=== PATIENT | male | born 1945 | race African-American/Black ===

== ENCOUNTER 2017-05-03 19:40 | Inpatient (IN) | payer MEDICARE, MEDICAID ==
[~2017-05-03] VITALS: Ht 172.7 cm; Wt 58.5 kg
[~2017-05-03 19:40] MED LIST: ACETAMINOP650 MG/20. PO; AGGRENOX1 CAP PO; ATORVASTATIN CA10 MG PO; COLACE100 MG PO; KEPPRA500 MG PO; LABETALOL HCL200 MG PO; LATANOPROST2.5 ML BOTH EYES; MULTIVITAMINS1 EAC8 PO; MYLANTA LIQUID355 ML PO; NORVASC10 MG PO; NOVOLOG INSULIN; NOVOLOG100 UNIT/3 SUBQ; PRILOSEC40 MG PO; SENNA LAX8.6 MG PO; ZESTRIL20 MG PO
[2017-05-03 19:53] VITALS: BP 169/106
[2017-05-03 21:02] VITALS: BP 162/93
[2017-05-03] MEDS ORDERED: ADVANCED ANTAC355 ML ORAL ×4 (21:14→21:43)
[2017-05-03] MEDS ORDERED: MYLANTA30 M1 GT (21:14)
[2017-05-03] MEDS ORDERED: ACETAMINOPHEN325 M1 ORAL (21:16)
[2017-05-03] MEDS ORDERED: PEPCID40 MG PO (21:18)
[2017-05-03 21:19] LABS: EOSINOPHILS % (AUTO) 0.3 % (0.0-3.0); LYMPHOCYTES % (AUTO) 28.6 % (20.0-45.0); MEAN CORPUSCULAR HGB CONC 33.4 G/DL (32.0-36.0); MEAN CORPUSCULAR VOLUME 96 FL (80-99); MEAN PLATELET VOLUME 8.7 FL (6.5-10.1); MONOCYTES % (AUTO) 6.6 % (1.0-10.0); NEUTROPHILS % (AUTO) 62.6 % (45.0-75.0); PLATELET COUNT 210 K/UL (150-450); RED BLOOD COUNT 5.09 M/UL (4.70-6.10); RED CELL DISTRIBUTION WIDTH 10.6 % (11.6-14.8); WHITE BLOOD COUNT 7.1 K/UL (4.8-10.8)
[2017-05-03] MEDS ORDERED: ASPIRIN EC325 MG ORAL (21:20)
[2017-05-03 21:22] LABS: APPEARANCE,URINE CLOUDY; KETONES,URINE 3+ (NEGATIVE); LEUKOCYTE ESTERASE ,URINE 3+ (NEGATIVE); NITRITE,URINE POSITIVE (NEGATIVE); PH,URINE 6 (4.5-8.0); PROTEIN,URINE 2+ (NEGATIVE); UROBILINOGEN,URINE NORMAL MG/DL (0.0-1.0)
[2017-05-03] MEDS ORDERED: LABETALOL HCL200 MG ORAL ×2 (21:22→21:34)
[2017-05-03] MEDS ORDERED: LISINOPRIL40 MG ORAL (21:29)
[2017-05-03 21:34] LABS: ALANINE AMINOTRANSFERASE 8 U/L (3-41); ALBUMIN/GLOBULIN RATIO 1.2 (1.0-2.7); ANION GAP 20 (5-15); ASPARTATE AMINO TRANSFERASE 22 U/L (5-40); CALCIUM 9.4 mg/dL (8.6-10.2); CARBON DIOXIDE 22 mEQ/L (20-30); CHLORIDE 100 mEQ/L (98-107); GLOMERULAR FILTRATION RATE > 60 mL/min (>60); HEMOLYSIS 12; LIPASE 17 U/L (< 60); POTASSIUM 4.2 mEQ/L (3.4-4.9); SODIUM 142 mEQ/L (135-145); TOTAL PROTEIN 7.5 g/dL (6.6-8.7)
[2017-05-03 21:37] LABS: BACTERIA,URINE MANY /HPF; RBC,URINE 15-20 /HPF (0 - 0); WBC,URINE TNTC /HPF (0 - 0)
[2017-05-03] MEDS ORDERED: Cefepime HCl 1 GM in D5W 55 ML IVPB ONE (21:45)
[2017-05-03] MEDS ORDERED: Cefepime 1gm vial ONE (21:49)
--- NOTE | 2017-05-03 22:27 | Emergency Room Report ---
History of Present Illness General Chief Complaint: General Complaint Source: Patient, Medical Record, EMS Present Illness HPI Is a 71-year-old gentleman with multiple medical problem. [facility]. He presents with chief complaint of generalized weakness. Not eating or drinking for about a week now. Diffuse in his medication. Patient denies any pain. No nausea no vomiting. No fever or chills. When I asked her why he is not eating, he said he does not have any appetite. 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 Hx Seizures: Yes - Epilepsy Hx Dysphasia: Yes Review of Systems Constitutional: Reports: weakness Eye: Denies: blurred vision, eye pain ENT: Denies: ear pain, nose congestion, throat swelling Respiratory: Denies: cough, shortness of breath Cardiovascular: Denies: chest pain, palpitations Gastrointestinal: Denies: abdominal pain, diarrhea, nausea, vomiting Musculoskeletal: Denies: back pain, joint pain Skin: Denies: rash Neurological: Denies: headache, numbness Endocrine: Denies: increased thirst, increased urine Hematologic/Lymphatic: Denies: easy bruising All Other Systems: negative except mentioned in HPI Physical Exam Vital Signs Date Time Temp Pulse Resp B/P Pulse Ox O2 Delivery O2 Flow Rate FiO2 05/03/17 19:36 98.1 84 16 155/91 97 Room Air vitals with htn Sp02 EP Interpretation: reviewed, normal General Appearance: no apparent distress, alert, thin Head: normocephalic, atraumatic Eyes: bilateral eye EOMI, bilateral eye PERRL ENT: hearing grossly normal, normal pharynx Neck: full range of motion, supple, no meningismus Respiratory: chest non-tender, lungs clear, normal breath sounds Cardiovascular #1: regular rate, rhythm, no murmur Gastrointestinal: normal bowel sounds, non tender, no mass, no organomegaly, no bruit, non-distended Musculoskeletal: back normal, gait/station normal, normal range of motion Psychiatric: mood/affect normal Skin: warm/dry Medical Decision Making Diagnostic Impression: Primary Impression: Failure to thrive in adult Additional Impressions: Dehydration UTI (urinary tract infection) Qualified Codes: N30.00 - Acute cystitis without hematuria Proteinuria Qualified Codes: R80.9 - Proteinuria, unspecified ER Course Patient with weakness and dehydration. Most likely secondary to infectious cause. No evidence of TIA or CVA. No evidence of acute abdomen. We'll get to the hospital. Discussed with primary care who will admit Lab Results Impression labs unremarkable Rhythm Strip Diag. Results Rhythm Strip Time: 22:57 EP Interpretation: yes Rate: 70 Rhythm: NSR Chest X-Ray Diagnostic Results Chest X-Ray Ordered: Yes # of Views/Limited/Complete: 1 View EP Interpretation: Yes Interpretation: no consolidation, no effusion, no pneumothorax Indication: Shortness of Breath Impression: No acute disease Interpreting ER Provider: Johnnie Fuentes MD Last Vital Signs Date Time Temp Pulse Resp B/P Pulse Ox O2 Delivery O2 Flow Rate FiO2 05/03/17 19:53 98.1 85 18 169/106 100 05/03/17 19:36 Room Air Status: improved Disposition: ADMITTED INPATIENT Condition: Serious Referrals: Gonzalez Romeo MD (PCP) JOHNNIE FUENTES M.D. May 03, 2017 22:27
[2017-05-03 23:57] VITALS: BP 150/85
[2017-05-04] VITALS: BP 142/85
[2017-05-04] MEDS ORDERED: Mylanta II UD 30ml ORAL PRN (02:00)
[2017-05-04 04:00] VITALS: BP 149/90
[2017-05-04 06:10] LABS: BASOPHILS % (AUTO) 1.5 % (0.0-2.0); EOSINOPHILS % (AUTO) 0.8 % (0.0-3.0); MEAN CORPUSCULAR HEMOGLOBIN 32.8 PG (27.0-31.0); MEAN CORPUSCULAR HGB CONC 33.9 G/DL (32.0-36.0); MEAN CORPUSCULAR VOLUME 97 FL (80-99); MEAN PLATELET VOLUME 9.2 FL (6.5-10.1); MONOCYTES % (AUTO) 8.8 % (1.0-10.0); NEUTROPHILS % (AUTO) 64.8 % (45.0-75.0); PLATELET COUNT 241 K/UL (150-450); RED BLOOD COUNT 4.42 M/UL (4.70-6.10); RED CELL DISTRIBUTION WIDTH 10.2 % (11.6-14.8)
[2017-05-04] MEDS: NovoLOG Insulin Flexpen SUBQ SCH ×4 (06:30→21:00)
[2017-05-04 06:39] LABS: ALANINE AMINOTRANSFERASE 7 U/L (3-41); ALBUMIN/GLOBULIN RATIO 1.4 (1.0-2.7); ANION GAP 19 (5-15); ASPARTATE AMINO TRANSFERASE 19 U/L (5-40); CARBON DIOXIDE 24 mEQ/L (20-30); CHLORIDE 101 mEQ/L (98-107); CREATININE 0.8 mg/dL (0.7-1.2); GLOMERULAR FILTRATION RATE > 60 mL/min (>60); HEMOLYSIS 1; POTASSIUM 3.7 mEQ/L (3.4-4.9); SODIUM 144 mEQ/L (135-145); TOTAL PROTEIN 6.6 g/dL (6.6-8.7)
[2017-05-04 08:00] VITALS: BP 132/89
--- NOTE | 2017-05-04 08:05 | Infectious Diseases Prog Note ---
Assessment/Plan Problems: (1) UTI (urinary tract infection) Assessment & Plan: will start cefepime , and send urine and blood culture (2) Failure to thrive in adult Assessment & Plan: recommend dietitian consult, may need tube feeding (3) Dehydration Assessment & Plan: continue ivf , monitor lytes (4) Seizure disorder Assessment & Plan: continue seizure meds, consult neurology (5) Diabetes Assessment & Plan: recommend tight glycemic control to keep blood glucose between 80-120 Subjective Allergies: Coded Allergies: PENICILLINS (Verified Allergy, Unknown, 09/27/11) Objective Vital Signs Last 24 Hour Vital Signs Date Time Temp Pulse Resp B/P Pulse Ox O2 Delivery O2 Flow Rate FiO2 05/04/17 04:00 97.8 70 20 149/90 98 Room Air 05/04/17 00:00 97.6 70 19 142/85 100 Room Air 05/03/17 23:57 98.1 74 18 150/85 100 05/03/17 23:57 74 26 150/85 100 Room Air 05/03/17 23:33 162/93 05/03/17 21:02 97.5 73 18 162/93 100 05/03/17 19:53 98.1 85 18 169/106 100 05/03/17 19:36 98.1 84 16 155/91 97 Room Air Height (Feet): 5 Height (Inches): 8.00 Weight (Pounds): 129 Laboratory Tests Test 05/03/17 20:54 05/03/17 21:12 05/04/17 05:00 White Blood Count 7.1 K/UL (4.8-10.8) 7.0 K/UL (4.8-10.8) Red Blood Count 5.09 M/UL (4.70-6.10) 4.42 M/UL (4.70-6.10) L Hemoglobin 16.3 G/DL (14.2-18.0) 14.5 G/DL (14.2-18.0) Hematocrit 48.9 % (42.0-52.0) 42.8 % (42.0-52.0) Mean Corpuscular Volume 96 FL (80-99) 97 FL (80-99) Mean Corpuscular Hemoglobin 32.0 PG (27.0-31.0) H 32.8 PG (27.0-31.0) H Mean Corpuscular Hemoglobin Concent 33.4 G/DL (32.0-36.0) 33.9 G/DL (32.0-36.0) Red Cell Distribution Width 10.6 % (11.6-14.8) L 10.2 % (11.6-14.8) L Platelet Count 210 K/UL (150-450) 241 K/UL (150-450) Mean Platelet Volume 8.7 FL (6.5-10.1) 9.2 FL (6.5-10.1) Neutrophils (%) (Auto) 62.6 % (45.0-75.0) 64.8 % (45.0-75.0) Lymphocytes (%) (Auto) 28.6 % (20.0-45.0) 24.0 % (20.0-45.0) Monocytes (%) (Auto) 6.6 % (1.0-10.0) 8.8 % (1.0-10.0) Eosinophils (%) (Auto) 0.3 % (0.0-3.0) 0.8 % (0.0-3.0) Basophils (%) (Auto) 2.0 % (0.0-2.0) 1.5 % (0.0-2.0) Sodium Level 142 mEQ/L (135-145) 144 mEQ/L (135-145) Potassium Level 4.2 mEQ/L (3.4-4.9) 3.7 mEQ/L (3.4-4.9) Chloride Level 100 mEQ/L (98-107) 101 mEQ/L (98-107) Carbon Dioxide Level 22 mEQ/L (20-30) 24 mEQ/L (20-30) Anion Gap 20 (5-15) H 19 (5-15) H Blood Urea Nitrogen 22 mg/dL (7-23) 18 mg/dL (7-23) Creatinine 1.0 mg/dL (0.7-1.2) 0.8 mg/dL (0.7-1.2) Estimat Glomerular Filtration Rate > 60 mL/min (>60) > 60 mL/min (>60) Glucose Level 99 mg/dL (74-106) 93 mg/dL (74-106) Calcium Level 9.4 mg/dL (8.6-10.2) 9.0 mg/dL (8.6-10.2) Total Bilirubin 0.7 mg/dL (0.0-1.2) 0.9 mg/dL (0.0-1.2) Aspartate Amino Transf (AST/SGOT) 22 U/L (5-40) 19 U/L (5-40) Alanine Aminotransferase (ALT/SGPT) 8 U/L (3-41) 7 U/L (3-41) Alkaline Phosphatase 64 U/L (40-129) 61 U/L (40-129) Total Protein 7.5 g/dL (6.6-8.7) 6.6 g/dL (6.6-8.7) Albumin 4.2 g/dL (3.5-5.2) 3.9 g/dL (3.5-5.2) Globulin 3.3 g/dL 2.7 g/dL Albumin/Globulin Ratio 1.2 (1.0-2.7) 1.4 (1.0-2.7) Lipase 17 U/L (< 60) Urine Color Pale yellow Urine Appearance Cloudy Urine pH 6 (4.5-8.0) Urine Specific [place] 1.015 (1.005-1.035) Urine Protein 2+ (NEGATIVE) H Urine Glucose (UA) Negative (NEGATIVE) Urine Ketones 3+ (NEGATIVE) H Urine Occult Blood 1+ (NEGATIVE) H Urine Nitrite Positive (NEGATIVE) H Urine Bilirubin Negative (NEGATIVE) Urine Urobilinogen Normal MG/DL (0.0-1.0) Urine Leukocyte Esterase 3+ (NEGATIVE) H Urine RBC 15-20 /HPF (0 - 0) H Urine WBC Tntc /HPF (0 - 0) H Urine Squamous Epithelial Cells None /LPF (NONE/OCC) Urine Bacteria Many /HPF (NONE) H Current Medications Medications (Trade) Dose Ordered Sig/Verónica Route PRN Reason Start Time Stop Time Status Last Admin Dose Admin Acetaminophen (Tylenol) 650 mg Q4H PRN ORAL Mild Pain/Temp > 100.5 05/04/17 02:00 06/03/17 01:59 Al Hydroxide/Mg Hydroxide (Mylanta II) 10 ml Q6H PRN ORAL heart burn/gas 05/04/17 02:00 06/03/17 01:59 Amlodipine Besylate (Norvasc) 10 mg DAILY ORAL 05/04/17 09:00 06/03/17 08:59 Aspirin (Ecotrin) 325 mg DAILY ORAL 05/04/17 09:00 06/03/17 08:59 Atorvastatin Calcium (Lipitor) 10 mg QHS ORAL 05/04/17 21:00 06/03/17 20:59 Clonidine HCl (Catapres) 0.1 mg Q6H PRN ORAL For High Blood Pressure 05/04/17 01:45 06/03/17 01:44 Dextrose (Dextrose 50%) STAT PRN IV Hypoglycemia 05/04/17 02:00 06/03/17 01:59 Docusate Sodium (Colace) 100 mg BID ORAL 05/04/17 09:00 06/03/17 08:59 Famotidine (Pepcid I.v.) 40 mg DAILY IVP 05/04/17 09:00 06/03/17 08:59 Insulin Aspart (NovoLOG) BEFORE MEALS AND HS SUBQ 05/04/17 06:30 06/03/17 06:29 Labetalol HCl (Normodyne) 200 mg DAILY ORAL 05/04/17 09:00 06/03/17 08:59 Latanoprost (Xalatan) 1 drop QHS BOTH EYES 05/04/17 21:00 06/03/17 20:59 Levetiracetam (Keppra) 500 mg Q12HR ORAL 05/04/17 09:00 06/03/17 08:59 Lisinopril (Prinivil) 40 mg DAILY ORAL 05/04/17 09:00 06/03/17 08:59 Multivitamins Therapeutic (Therapeutic Multivitamin) 1 ea DAILY ORAL 05/04/17 09:00 06/03/17 08:59 Alan Vickers M.D. May 04, 2017 08:05
[2017-05-04] MEDS: Labetalol 200mg tab ORAL SCH (09:00)
[2017-05-04] MEDS: Docusate 100mg cap ORAL SCH ×3 (09:00→18:00)
[2017-05-04] MEDS: Multivitamin w/Minerals tab ORAL SCH ×2 (09:00→10:01)
[2017-05-04] MEDS: Lisinopril 20mg tab ORAL SCH ×2 (09:00→10:03)
[2017-05-04] MEDS: Aspirin EC 325mg tab ORAL SCH (10:01)
[2017-05-04] MEDS: Famotidine 20 MG/ 2ML VIAL IVP SCH (10:01)
[2017-05-04] MEDS: Cefepime HCl 1 GM in D5W 55 ML IVPB SCH ×2 (10:04→22:35)
--- NOTE | 2017-05-04 11:05 | Diagnostic Imaging Report ---
Indication: Cough Technique: One view of the chest Comparison: none Findings: Lungs and pleural spaces are clear. Heart size is normal. Aorta is tortuous. No significant change Impression: No acute process
[2017-05-04 12:00] VITALS: BP 150/96
[2017-05-04 16:00] VITALS: BP 137/87
[2017-05-04 20:00] VITALS: BP 138/85
--- NOTE | 2017-05-04 21:01 | Consultation ---
DATE OF CONSULTATION: 05/04/2017 INFECTIOUS DISEASE CONSULTATION: CONSULTING PHYSICIAN: Alan Vickers M.D. REQUESTING PHYSICIAN: Gonzalez Romeo M.D. REASON FOR CONSULTATION: Urinary tract infection with history of multi-drug resistant organism and recommendation for antibiotics treatment. HISTORY OF PRESENT ILLNESS: The patient is a 71-year-old male with past medical history of diabetes, coronary artery disease, hypertension, GERD, and dementia with seizure, was sent to [facility] emergency room from group home due to generalized weakness and poor oral intake for a week. The patient has been refusing his medication. He had no pain. No nausea or vomiting. No fever or chills at the group home. So, he was evaluated in the emergency room and workup showed evidence of urinary tract infection. The patient was admitted to the hospital and he was consulted by the primary provider for antibiotics treatment since he had history of multi-drug resistant Citrobacter in his urine. As of note, the patient is a poor historian and cannot provide any history due to dementia. History was mainly obtained from the medical records. REVIEW OF SYSTEMS: Unable to obtain at this point. The patient is a poor historian. PAST MEDICAL HISTORY: Significant for coronary artery disease, hypertension, diabetes, GERD, dementia, CVA, epilepsy, and dysphagia. PAST SURGICAL HISTORY: Negative. FAMILY HISTORY: Unable to obtain. SOCIAL HISTORY: He is a group home resident. He denied using any drugs, tobacco, or alcohol. ALLERGIES: He is allergic to penicillin unclear what reaction he gets. MEDICATIONS: He received cefepime in the emergency room. For the rest of his medications, please refer to JAN. PHYSICAL EXAMINATION: VITAL SIGNS: Temperature is 97.2 degrees, pulse 71, respirations 20, blood pressure 132/89, and pulse oximetry 100% on room air. GENERAL: This is an elderly male, up in bed, demented, awake, alert, and follows commands, not in distress. HEENT: Normocephalic and atraumatic. Pupils are reactive to light. Moist oral mucosa. No exudate. NECK: Supple. No lymphadenopathy. CARDIOVASCULAR: Regular rate and rhythm. No murmur. No gallop. LUNGS: Clear bilaterally. No wheezing. No rhonchi. Normal breathing effort. ABDOMEN: Soft, nontender, and nondistended. Positive bowel sounds. No hepatosplenomegaly or ascites. EXTREMITIES: No edema or cyanosis. No clubbing. SKIN: No rash or hives. LABORATORY DATA: Labs showed white count of 7000, hemoglobin of 14.5, and platelet count of 241,000. BUN is 18 and creatinine 0.8. AST is 19 and ALT 7. Urinalysis showed positive nitrite, +3 leukocyte esterase, WBCs too numerous to count, and many bacteria. IMAGING DATA: Chest x-ray showed no acute process in the lungs. ASSESSMENT AND RECOMMENDATIONS: 1. Urinary tract infection with history of multi-drug resistant Citrobacter. The patiently will be started on cefepime. We will send urine and blood culture. 2. Failure to thrive, could be due to urinary tract infection, on antibiotics treatment. Already recommended community education coordinator consultation for further evaluation and may need tube feeding. 3. Dehydration due to poor oral intake. Continue intravenous fluids. Monitor electrolytes. 4. Seizure disorder. Continue seizure medicine. Consult Neurology. 5. Diabetes. Recommended tight glycemic control to keep blood glucose between 80 to 120. Alan Vickers M.D. DR: Hunter JOB#: [id number] CC:
--- NOTE | 2017-05-04 23:31 | Consultation ---
DATE OF CONSULTATION: 05/04/2017 HISTORY OF PRESENT ILLNESS: This is a 71-year-old male with a history of multiple medical problems, including hypertension, who is being admitted to the hospital with failure to thrive and not eating. Chief complaint was generalized weakness. The patient has not been eating or drinking for the past week also has not been taking medications. During the evaluation, the patient presents with depressed mood, anhedonia, hopelessness, helplessness, decreased energy, decreased appetite, and mild cognitive impairment. He is empirically illogical. He is unable to understand process, communicate, or appreciate the importance of taking medication. PAST PSYCHIATRIST HISTORY: He had a history of depression and anxiety. The patient is on no psychotropic medication. No suicide attempt. PAST MEDICAL HISTORY: Significant for hypertension, proteinuria, urinary tract infection, and diabetes. ALLERGIES: Penicillin. SUBSTANCE ABUSE HISTORY: No known history of illicit drug use or alcohol. MENTAL STATUS EXAMINATION: The patient is oriented and disinterested. Mood is depressed. Affect is constricted. Congruent mood. Thought process is concrete. Thought content, no suicidal or homicidal ideation. Cognition is impaired. ASSESSMENT: Logan I Mood disorder. Logan II Deferred. Logan III As above. Logan IV Moderate. Logan V Global assessment of functioning is 20. PLAN: 1. The patient lacks capacity to make medical decision. 2. We will start the patient on Remeron 15 mg a day to stimulate his appetite. 3. We will continue to follow and readjust the medications. Abner Toribio M.D. DR: NICK JOB#: [id number] CC:
--- NOTE | 2017-05-04 23:45 | History and Physical Report ---
DATE OF ADMISSION: 05/03/2017 HISTORY OF PRESENT ILLNESS: The patient is admitted for further treatment. The patient is also very paranoid. The patient has also been admitted for UTI. The patient is a poor historian. Cannot get any reliable history from the patient. However, denies pain. Denies shortness of breath. No nausea, vomiting or diarrhea. No fever or chills. PAST MEDICAL HISTORY: Significant for schizophrenia, hyperlipidemia, history of CVA, constipation, GERD, hypertension, seizure disorder and glaucoma. PAST SURGICAL HISTORY: Denies. ALLERGIES: Penicillin. MEDICATIONS: Lisinopril, Keppra, Xalatan, labetalol, NovoLog, Pepcid, Colace, Lipitor, aspirin, and Norvasc. FAMILY HISTORY: Unable to obtain. SOCIAL HISTORY: Unable to obtain. REVIEW OF SYSTEMS: Unable to obtain. Very poor historian. PHYSICAL EXAMINATION: VITAL SIGNS: Temperature 98.1 degrees, pulse is 74, and blood pressure 150/85. HEENT: PERRLA. NECK: Supple. No lymphadenopathy. CHEST: Clear to auscultation. GASTROINTESTINAL: Soft and nontender. No organomegaly. EXTREMITIES: No edema. Reflexes are equal on both sides. NEUROLOGIC: Oriented to name only. Very poor historian, which is his baseline. LABORATORY AND DIAGNOSTIC DATA: WBC of 7.1, hemoglobin 16.3, and platelet of 310,000. Sodium 142, potassium 3.2, BUN of 22, creatinine 1 and glucose of 99. ASSESSMENT AND PLAN: 1. Failure to thrive. 2. Paranoid hallucinating schizophrenia. 3. Urinary tract infection. I have asked Dr. Vickers, Dr. Toribio, Dr. Dover to see the patient for the dehydration and hallucinations as well as UTI for the treatment and diagnoses. Gonzalez Romeo M.D. DR: MUKUL JOB#: [id number] CC:
[2017-05-05] VITALS: BP 132/79
[2017-05-05] MEDS: NovoLOG Insulin Flexpen SUBQ SCH ×4 (06:30→21:00)
[2017-05-05] MEDS: Aspirin EC 325mg tab ORAL SCH (08:49)
[2017-05-05] MEDS: Docusate 100mg cap ORAL SCH ×2 (08:49→18:00)
[2017-05-05] MEDS: Famotidine 20 MG/ 2ML VIAL IVP SCH (08:49)
[2017-05-05] MEDS: Labetalol 200mg tab ORAL SCH (08:51)
[2017-05-05] MEDS: Multivitamin w/Minerals tab ORAL SCH (08:51)
[2017-05-05] MEDS: Lisinopril 20mg tab ORAL SCH (08:51)
[2017-05-05] MEDS: Cefepime HCl 1 GM in D5W 55 ML IVPB SCH ×2 (09:00→21:20)
--- NOTE | 2017-05-05 12:52 | Infectious Diseases Prog Note ---
Assessment/Plan Problems: (1) UTI (urinary tract infection) Assessment & Plan: with gram negative rods, continue cefepime , await urine and blood culture (2) Failure to thrive in adult Assessment & Plan: recommend dietitian consult, may need tube feeding (3) Dehydration Assessment & Plan: continue ivf , monitor lytes (4) Seizure disorder Assessment & Plan: continue seizure meds, consult neurology (5) Diabetes Assessment & Plan: recommend tight glycemic control to keep blood glucose between 80-120 (6) MRSA (methicillin resistant Staphylococcus aureus) colonization Assessment & Plan: will start bactroban to decolonize Subjective ROS Limited/Unobtainable: Yes Allergies: Coded Allergies: PENICILLINS (Verified Allergy, Unknown, 09/27/11) Subjective he was up in bed, awake and alert, not in distress, dosen't follow commands, nonverbal Objective Vital Signs Last 24 Hour Vital Signs Date Time Temp Pulse Resp B/P Pulse Ox O2 Delivery O2 Flow Rate FiO2 05/05/17 08:51 132/79 05/05/17 08:51 70 132/79 05/05/17 00:00 98.0 70 18 132/79 99 Room Air 05/04/17 20:00 97.3 71 18 138/85 98 Room Air 05/04/17 16:00 97.5 77 20 137/87 98 Room Air Height (Feet): 5 Height (Inches): 8.00 Weight (Pounds): 129 General Appearance: WD/WN, no acute distress HEENT: normocephalic, atraumatic, anicteric Respiratory/Chest: chest wall non-tender, lungs clear, normal breath sounds, no respiratory distress, no accessory muscle use Cardiovascular: normal peripheral pulses, normal rate, regular rhythm, no gallop/murmur, no JVD Abdomen: normal bowel sounds, soft, non tender, no organomegaly, non distended , no mass Extremities: no cyanosis, no clubbing Skin: no rash, no lesions Microbiology Date/Time Source Procedure Growth Status 05/03/17 23:56 Nasal Nares MRSA Culture - Final Staphylococcus Aureus - Mrsa Complete 05/03/17 21:12 Urine,Clean Catch Urine Culture - Preliminary Gram Negative Bacillus 1 Resulted Current Medications Medications (Trade) Dose Ordered Sig/Verónica Route PRN Reason Start Time Stop Time Status Last Admin Dose Admin Acetaminophen (Tylenol) 650 mg Q4H PRN ORAL Mild Pain/Temp > 100.5 05/04/17 02:00 06/03/17 01:59 Al Hydroxide/Mg Hydroxide (Mylanta II) 10 ml Q6H PRN ORAL heart burn/gas 05/04/17 02:00 06/03/17 01:59 Amlodipine Besylate (Norvasc) 10 mg DAILY ORAL 05/04/17 09:00 06/03/17 08:59 Aspirin (Ecotrin) 325 mg DAILY ORAL 05/04/17 09:00 06/03/17 08:59 05/04/17 10:01 Atorvastatin Calcium (Lipitor) 10 mg QHS ORAL 05/04/17 21:00 06/03/17 20:59 Cefepime HCl/ Dextrose (Maxipime/D5W) 55 ml @ 110 mls/hr EVERY 12 HOURS IVPB 05/04/17 10:00 05/11/17 09:59 05/04/17 22:35 Clonidine HCl (Catapres) 0.1 mg Q6H PRN ORAL For High Blood Pressure 05/04/17 01:45 06/03/17 01:44 Dextrose STAT PRN IV Hypoglycemia 05/04/17 02:00 06/03/17 01:59 Docusate Sodium (Colace) 100 mg BID ORAL 05/04/17 09:00 06/03/17 08:59 Famotidine (Pepcid I.v.) 40 mg DAILY IVP 05/04/17 09:00 06/03/17 08:59 05/04/17 10:01 Insulin Aspart (NovoLOG) BEFORE MEALS AND HS SUBQ 05/04/17 06:30 06/03/17 06:29 Labetalol HCl (Normodyne) 200 mg DAILY ORAL 05/04/17 09:00 06/03/17 08:59 Latanoprost (Xalatan) 1 drop QHS BOTH EYES 05/04/17 21:00 06/03/17 20:59 Levetiracetam (Keppra) 500 mg Q12HR ORAL 05/04/17 09:00 06/03/17 08:59 Lisinopril (Prinivil) 40 mg DAILY ORAL 05/04/17 09:00 06/03/17 08:59 Mirtazapine 15 mg 15 mg BEDTIME ORAL 05/04/17 21:00 06/03/17 20:59 Multivitamins Therapeutic (Therapeutic Multivitamin) 1 ea DAILY ORAL 05/04/17 09:00 06/03/17 08:59 Sodium Chloride (0.45% NS 1000ml) 1,000 ml @ 60 mls/hr [id number] IV 05/04/17 22:45 06/03/17 22:44 05/04/17 23:00 Alan Vickers M.D. May 05, 2017 12:52
--- NOTE | 2017-05-05 14:55 | General Progress Note ---
Assessment/Plan Problem List: (1) Dehydration ICD Codes: E86.0 - Dehydration SNOMED: 21314507 (2) UTI (urinary tract infection) ICD Codes: N39.0 - Urinary tract infection, site not specified SNOMED: 67572074 Qualifiers: Qualified Codes: N30.00 - Acute cystitis without hematuria (3) Seizure disorder (4) Failure to thrive in adult ICD Codes: R62.7 - Adult failure to thrive SNOMED: 383047809 (5) Diabetes ICD Codes: E11.9 - Type 2 diabetes mellitus without complications SNOMED: 61438852 Status: progressing Assessment/Plan afebrile no wheezing niddm FTT hallucination treatment per dr weaver uti is improving Subjective ROS Limited/Unobtainable: Yes Allergies: Coded Allergies: PENICILLINS (Verified Allergy, Unknown, 09/27/11) Objective Last 24 Hour Vital Signs Date Time Temp Pulse Resp B/P Pulse Ox O2 Delivery O2 Flow Rate FiO2 05/05/17 08:51 132/79 05/05/17 08:51 70 132/79 05/05/17 00:00 98.0 70 18 132/79 99 Room Air 05/04/17 20:00 97.3 71 18 138/85 98 Room Air 05/04/17 16:00 97.5 77 20 137/87 98 Room Air Intake and Output 05/04/17 05/05/17 19:00 07:00 Intake Total 450 ml 1380 ml Balance 450 ml 1380 ml Intake Oral 450 ml 800 ml IV Total 580 ml # Voids 6 5 Height (Feet): 5 Height (Inches): 8.00 Weight (Pounds): 129 General Appearance: confused Neck: supple Cardiovascular: normal rate Respiratory/Chest: lungs clear Abdomen: soft Gonzalez Romeo MD May 05, 2017 14:55
[2017-05-05] MEDS ORDERED: Tubing IV Secondary IV ONE (15:44)
[2017-05-05] MEDS ORDERED: 1/2 NS 1000ml IV ONE (15:44)
[2017-05-05] MEDS ORDERED: NS 275ml ONE (15:44)
[2017-05-05 20:00] VITALS: BP 172/95
--- NOTE | 2017-05-05 20:16 | Progress Note ---
DATE: 05/05/2017 SUBJECTIVE: The patient was sitting in bed, not talking, had a tray of food in front of him and was not eating. He stated he has no appetite, did not answer most of my questions and remain quiet. MENTAL STATUS EXAMINATION: The patient was alert and oriented to at least self. Mood was depressed. Affect was flat. Congruent with mood. Thought process was there is a paucity of thought content. No suicidal or homicidal ideations. ASSESSMENT: 1. Major depressive disorder. 2. Cognitive impairment. PLAN: 1. The patient lacks capacity to make any medical decisions. 2. Continue the Remeron 15 mg by mouth at bedtime. 3. We will continue to follow and readjust the medications. Abner Toribio M.D. DR: NICK JOB#: [id number] CC:
[2017-05-06] MEDS: NovoLOG Insulin Flexpen SUBQ SCH ×4 (06:30→21:00)
[2017-05-06 08:00] VITALS: BP 81/43
[2017-05-06] MEDS: Labetalol 200mg tab ORAL SCH (09:00)
[2017-05-06] MEDS: Cefepime HCl 1 GM in D5W 55 ML IVPB SCH (09:00)
[2017-05-06] MEDS: Aspirin EC 325mg tab ORAL SCH (09:00)
[2017-05-06] MEDS: Famotidine 20 MG/ 2ML VIAL IVP SCH (09:00)
[2017-05-06] MEDS: Multivitamin w/Minerals tab ORAL SCH (09:00)
[2017-05-06] MEDS: Lisinopril 20mg tab ORAL SCH (09:00)
[2017-05-06] MEDS: Docusate 100mg cap ORAL SCH ×2 (09:00→17:06)
[2017-05-06] MEDS ORDERED: Sodium Bicarbonate 50ml Carp IV ONE (10:30)
[2017-05-06] MEDS ORDERED: Heparin 2000 units/Ns 1000ml IV ONE (10:30)
[2017-05-06] MEDS ORDERED: Lidocaine 1% Plain 30 ml INJ ONE (10:30)
--- NOTE | 2017-05-06 13:40 | GI Initial Consult Note ---
FuentesTiffani Duncanoi N.P. 05/06/17 1340: History of Present Illness General Date patient seen: May 06, 2017 Time patient seen: 13:35 Reason for Hospitalization: General Complaint Referring physician: MARILUZ CLAYTON Reason for Consultation: FTT Present Illness HPI Is a 71-year-old gentleman with multiple medical problem. He resides in a long term. He presents with chief complaint of generalized weakness. Not eating or drinking for about a week now. Diffuse in his medication. Patient denies any pain. No nausea no vomiting. No fever or chills. When I asked her why he is not eating, he said he does not have any appetite. GI Consult. HPI as noted above. GI consulted for FTT and PEG evaluation. Pt seen on floor, awake A&O NAD with no active s/sx of N/V/D. Pt presents today with FTT, poor appetite and refusing to eat and take medications. Per RN report , pt becomes agitated and pulls lines currently with no IV access. No general GI complaints noted at this time. CBC, BMP unremarkable. Unknown history of any endoscopic procedures. Home Meds Reported Medications Mag Hydrox/Al Hydrox/Simeth* (ADVANCED ANTACID LIQUID*) 355 Ml Oral.susp, 10 ML ORAL, ML TAKE 10ML PO Q6HRS NEEDED FOR GAS/HEARTBURN 05/03/17 Labetalol Hcl* (NORMODYNE*) 200 Mg Tablet, 200 MG ORAL DAILY, TAB 05/03/17 Lisinopril* (LISINOPRIL*) 40 Mg Tablet, 40 MG ORAL DAILY, TAB 05/03/17 Aspirin* (ASPIRIN EC*) 325 Mg Tablet.dr, 325 MG ORAL DAILY, TAB 05/03/17 Famotidine (PEPCID) 40 Mg Tablet, 40 MG PO DAILY, #7 TAB 0 Refills 05/03/17 Acetaminophen* (ACETAMINOPHEN 325MG TABLET*) 325 Mg Tablet, 650 MG ORAL Q4H Y for For Pain, TAB 05/03/17 Insulin Aspart* (NOVOLOG*) 100 Unit/1 Ml Insuln.pen, 0 SUBQ ACHS, #1 EA 0 Refills 03/13/14 Multivitamin With Minerals (MULTIVITAMINS WITH MINERALS*) 1 Each Tablet, 1 EACH PO DAILY, TAB 12/22/12 Levetiracetam (Keppra) 500 Mg Tab, 500 MG PO Q12H, #20 TAB 12/22/12 Latanoprost* (XALATAN*) 2.5 Ml Drops, 1 DROP BOTH EYES QHS, ML Instill one drop in each time daily at bedtime 12/22/12 Docusate Sodium* (COLACE*) 100 Mg Capsule, 100 MG PO BID, #30 CAP 12/22/12 Atorvastatin Calcium* (LIPITOR*) 10 Mg Tablet, 10 MG PO QHS 12/22/12 Amlodipine Besylate (Norvasc) 10 Mg Tab, 10 MG PO DAILY, #10 TAB 12/22/12 Discontinued Reported Medications Mag Hydrox/Al Hydrox/Simeth (MYLANTA LIQUID) 355 Ml Oral.susp, 10 ML PO QID, #1 ML Take 2 teaspoon by mouth 4 times a day after meals. 12/22/12 Acetaminophen* (TYLENOL*) 650 Mg/20.3 Ml Oral.susp, 650 MG PO Q4H 12/22/12 Sennosides (SENNA LAX) 8.6 Mg Tablet, 8.6 MG PO DAILY 12/22/12 Labetalol Hcl* (NORMODYNE*) 200 Mg Tablet, 400 MG PO DAILY, #20 TAB 12/22/12 Lisinopril* (ZESTRIL*) 20 Mg Tablet, 40 MG PO DAILY, #10 TAB Take 1 tablet by mouth every day. 12/22/12 Dipyridamole/Aspirin (Aggrenox 25 mg-200 mg Capsule) 1 Cap Cap, 1 CAP PO BID Capsule should be swallowed whole; do not crush or chew. 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 Hx Seizures: Yes - Epilepsy Hx Dysphasia: Yes Review of Systems All Other Systems: negative except mentioned in HPI Physical Exam Vital Signs Date Time Temp Pulse Resp B/P Pulse Ox O2 Delivery O2 Flow Rate FiO2 05/03/17 19:36 98.1 84 16 155/91 97 Room Air Sp02 EP Interpretation: reviewed General Appearance: well appearing, no apparent distress, alert Head: normocephalic EENT: normal ENT inspection Neck: full range of motion, supple Respiratory: normal breath sounds, no respiratory distress Cardiovascular: normal rate Gastrointestinal: normal inspection, non tender, soft Rectal: deferred Musculoskeletal: normal inspection, back normal Neurologic: normal inspection, alert, responsive Skin: normal inspection, normal color, no rash, warm/dry Lymphatic: normal inspection, no adenopathy Current Medications Current Medications Medications (Trade) Dose Ordered Sig/Verónica Route PRN Reason Start Time Stop Time Status Last Admin Dose Admin Acetaminophen (Tylenol) 650 mg Q4H PRN ORAL Mild Pain/Temp > 100.5 05/06/17 14:00 06/05/17 13:59 Al Hydroxide/Mg Hydroxide (Mylanta II) 10 ml Q6H PRN ORAL heart burn/gas 05/06/17 14:00 06/05/17 13:59 Amlodipine Besylate (Norvasc) 10 mg DAILY ORAL 05/07/17 09:00 06/06/17 08:59 Aspirin (Ecotrin) 325 mg DAILY ORAL 05/07/17 09:00 06/06/17 08:59 Atorvastatin Calcium (Lipitor) 10 mg QHS ORAL 05/06/17 21:00 06/05/17 20:59 Ceftriaxone Sodium/Dextrose (Rocephin/D5W) 55 ml @ 110 mls/hr Q24H IVPB 05/06/17 14:00 05/13/17 13:59 Chlorhexidine Gluconate (Nilam-Hex 2%) 1 applic DAILY TOPIC 05/07/17 09:00 06/06/17 08:59 Clonidine HCl (Catapres) 0.1 mg Q6H PRN ORAL For High Blood Pressure 05/06/17 13:45 06/05/17 13:44 Dextrose (Dextrose 50%) STAT PRN IV Hypoglycemia 05/07/17 02:00 06/06/17 01:59 Docusate Sodium (Colace) 100 mg BID ORAL 05/06/17 18:00 06/05/17 17:59 Famotidine (Pepcid I.v.) 40 mg DAILY IVP 05/07/17 09:00 06/06/17 08:59 Insulin Aspart (NovoLOG) BEFORE MEALS AND HS SUBQ 05/06/17 11:30 06/05/17 11:29 Labetalol HCl (Normodyne) 200 mg DAILY ORAL 05/07/17 09:00 06/06/17 08:59 Latanoprost (Xalatan) 1 drop QHS BOTH EYES 05/06/17 21:00 06/05/17 20:59 Levetiracetam (Keppra) 500 mg Q12HR ORAL 05/06/17 21:00 06/05/17 20:59 Lisinopril (Prinivil) 40 mg DAILY ORAL 05/07/17 09:00 06/06/17 08:59 Multivitamins Therapeutic (Therapeutic Multivitamin) 1 ea DAILY ORAL 05/07/17 09:00 06/06/17 08:59 Mupirocin 1 applic 1 applic THREE TIMES A DAY TOPIC 05/06/17 13:00 05/10/17 12:59 Olanzapine (ZyPREXA) 5 mg DAILY ORAL 05/06/17 13:00 06/05/17 12:59 Sodium Chloride (0.45% NS 1000ml) 1,000 ml @ 60 mls/hr [id number] IV 05/06/17 11:00 06/05/17 10:59 GI: Plan Problems: (1) Severe malnutrition (2) Diabetes (3) Failure to thrive in adult (4) Dehydration (5) Encounter for PEG (percutaneous endoscopic gastrostomy) Plan PEG if family agrees >> spoke to the daughter today and she wants to hold off GT placement at this time. push PO ordered calorie count ADA diet fu labs Discussed with Dr. Gates. Thank you for referring this patient, we will follow. RADHA GATSE 05/07/17 4309: History of Present Illness General Reason for Hospitalization: General Complaint Present Illness Home Meds Reported Medications Mag Hydrox/Al Hydrox/Simeth* (ADVANCED ANTACID LIQUID*) 355 Ml Oral.susp, 10 ML ORAL, ML TAKE 10ML PO Q6HRS NEEDED FOR GAS/HEARTBURN 05/03/17 Labetalol Hcl* (NORMODYNE*) 200 Mg Tablet, 200 MG ORAL DAILY, TAB 05/03/17 Lisinopril* (LISINOPRIL*) 40 Mg Tablet, 40 MG ORAL DAILY, TAB 05/03/17 Aspirin* (ASPIRIN EC*) 325 Mg Tablet., 325 MG ORAL DAILY, TAB 05/03/17 Famotidine (PEPCID) 40 Mg Tablet, 40 MG PO DAILY, #7 TAB 0 Refills 05/03/17 Acetaminophen* (ACETAMINOPHEN 325MG TABLET*) 325 Mg Tablet, 650 MG ORAL Q4H Y for For Pain, TAB 05/03/17 Insulin Aspart* (NOVOLOG*) 100 Unit/1 Ml Insuln.pen, 0 SUBQ ACHS, #1 EA 0 Refills 03/13/14 Multivitamin With Minerals (MULTIVITAMINS WITH MINERALS*) 1 Each Tablet, 1 EACH PO DAILY, TAB 12/22/12 Levetiracetam (Keppra) 500 Mg Tab, 500 MG PO Q12H, #20 TAB 12/22/12 Latanoprost* (XALATAN*) 2.5 Ml Drops, 1 DROP BOTH EYES QHS, ML Instill one drop in each time daily at bedtime 12/22/12 Docusate Sodium* (COLACE*) 100 Mg Capsule, 100 MG PO BID, #30 CAP 12/22/12 Atorvastatin Calcium* (LIPITOR*) 10 Mg Tablet, 10 MG PO QHS 12/22/12 Amlodipine Besylate (Norvasc) 10 Mg Tab, 10 MG PO DAILY, #10 TAB 12/22/12 Discontinued Reported Medications Mag Hydrox/Al Hydrox/Simeth (MYLANTA LIQUID) 355 Ml Oral.susp, 10 ML PO QID, #1 ML Take 2 teaspoon by mouth 4 times a day after meals. 12/22/12 Acetaminophen* (TYLENOL*) 650 Mg/20.3 Ml Oral.susp, 650 MG PO Q4H 12/22/12 Sennosides (SENNA LAX) 8.6 Mg Tablet, 8.6 MG PO DAILY 12/22/12 Labetalol Hcl* (NORMODYNE*) 200 Mg Tablet, 400 MG PO DAILY, #20 TAB 12/22/12 Lisinopril* (ZESTRIL*) 20 Mg Tablet, 40 MG PO DAILY, #10 TAB Take 1 tablet by mouth every day. 12/22/12 Dipyridamole/Aspirin (Aggrenox 25 mg-200 mg Capsule) 1 Cap Cap, 1 CAP PO BID Capsule should be swallowed whole; do not crush or chew. May be administered with or without food 12/22/12 Allergies: Coded Allergies: PENICILLINS (Verified Allergy, Unknown, 09/27/11) GI: Plan Plan The patient was seen and examined at bedside and all new and available data was reviewed in the patients chart. I agree with the above findings, impression and plan. (Patient seen earlier today. Signature stamp does not reflect patient encounter time.). -Nata Acevedo MDh Grey Wilson May 06, 2017 13:40 RADHA GATES May 07, 2017 04:49
[2017-05-06] MEDS ORDERED: Mylanta II UD 30ml ORAL PRN (14:00)
[2017-05-06] MEDS ORDERED: cefTRIAXone 1 GM in D5W 55 ML IVPB SCH (14:00)
--- NOTE | 2017-05-06 14:24 | Infectious Diseases Prog Note ---
Assessment/Plan Problems: (1) UTI (urinary tract infection) Assessment & Plan: with pansensitive Klebsiella pneumonia , on cefepime , will switch to ceftriaxon , monitor blood culture (2) Failure to thrive in adult Assessment & Plan: dietitian was consulted , may need tube feeding , Gi consulted for possible PEG tube placement (3) Dehydration Assessment & Plan: continue ivf , monitor lytes (4) Seizure disorder Assessment & Plan: continue seizure meds, consult neurology (5) Diabetes Assessment & Plan: recommend tight glycemic control to keep blood glucose between 80-120 (6) MRSA (methicillin resistant Staphylococcus aureus) colonization Assessment & Plan: on bactroban to decolonize Subjective Constitutional: Reports: no symptoms HEENT: Reports: no symptoms Respiratory: Reports: no symptoms Cardiovascular: Reports: no symptoms Gastrointestinal/Abdominal: Reports: no symptoms Genitourinary: Reports: no symptoms Neurologic: Reports: no symptoms Psychiatric: Reports: no symptoms Skin: Reports: no symptoms Endocrine: Reports: no symptoms Hematologic: Reports: no symptoms Allergies: Coded Allergies: PENICILLINS (Verified Allergy, Unknown, 09/27/11) Subjective he was up in bed, awake and alert, not in distress, dosen't follow commands, nonverbal Objective Vital Signs Last 24 Hour Vital Signs Date Time Temp Pulse Resp B/P Pulse Ox O2 Delivery O2 Flow Rate FiO2 05/06/17 08:00 96.8 38 20 81/43 100 Room Air 05/05/17 21:08 172/95 05/05/17 20:00 95.9 76 20 172/95 97 Room Air Height (Feet): 5 Height (Inches): 8.00 Weight (Pounds): 129 General Appearance: WD/WN, no acute distress HEENT: normocephalic, atraumatic, anicteric, mucous membranes moist, PERRL, supple, no JVD Respiratory/Chest: chest wall non-tender, lungs clear, normal breath sounds, no respiratory distress, no accessory muscle use Cardiovascular: normal peripheral pulses, normal rate, regular rhythm, regularly irregular, no gallop/murmur, no JVD Abdomen: normal bowel sounds, soft, non tender, no organomegaly, non distended , no mass, no scars Extremities: no cyanosis, no clubbing Skin: no rash, no lesions, no ulcers Lymphatic: no neck adenopathy Musculoskeletal: normal muscle bulk Microbiology Date/Time Source Procedure Growth Status 05/03/17 23:56 Nasal Nares MRSA Culture - Final Staphylococcus Aureus - Mrsa Complete 05/05/17 06:00 Indwelling Cath Urine Culture - Preliminary NO GROWTH AFTER 24 HOURS Resulted 05/03/17 21:12 Urine,Clean Catch Urine Culture - Final Klebsiella Pneumoniae Complete Current Medications Medications (Trade) Dose Ordered Sig/Verónica Route PRN Reason Start Time Stop Time Status Last Admin Dose Admin Acetaminophen (Tylenol) 650 mg Q4H PRN ORAL Mild Pain/Temp > 100.5 05/06/17 14:00 06/05/17 13:59 Al Hydroxide/Mg Hydroxide (Mylanta II) 10 ml Q6H PRN ORAL heart burn/gas 05/06/17 14:00 06/05/17 13:59 Amlodipine Besylate (Norvasc) 10 mg DAILY ORAL 05/07/17 09:00 06/06/17 08:59 Aspirin (Ecotrin) 325 mg DAILY ORAL 05/07/17 09:00 06/06/17 08:59 Atorvastatin Calcium (Lipitor) 10 mg QHS ORAL 05/06/17 21:00 06/05/17 20:59 Ceftriaxone Sodium/Dextrose (Rocephin/D5W) 55 ml @ 110 mls/hr Q24H IVPB 05/06/17 14:00 05/13/17 13:59 Chlorhexidine Gluconate (Nilam-Hex 2%) 1 applic DAILY TOPIC 05/07/17 09:00 06/06/17 08:59 Clonidine HCl (Catapres) 0.1 mg Q6H PRN ORAL For High Blood Pressure 05/06/17 13:45 06/05/17 13:44 Dextrose (Dextrose 50%) STAT PRN IV Hypoglycemia 05/07/17 02:00 06/06/17 01:59 Docusate Sodium (Colace) 100 mg BID ORAL 05/06/17 18:00 06/05/17 17:59 Famotidine (Pepcid I.v.) 40 mg DAILY IVP 05/07/17 09:00 06/06/17 08:59 Insulin Aspart (NovoLOG) BEFORE MEALS AND HS SUBQ 05/06/17 11:30 06/05/17 11:29 Labetalol HCl (Normodyne) 200 mg DAILY ORAL 05/07/17 09:00 06/06/17 08:59 Latanoprost (Xalatan) 1 drop QHS BOTH EYES 05/06/17 21:00 06/05/17 20:59 Levetiracetam (Keppra) 500 mg Q12HR ORAL 05/06/17 21:00 06/05/17 20:59 Lisinopril (Prinivil) 40 mg DAILY ORAL 05/07/17 09:00 06/06/17 08:59 Multivitamins Therapeutic (Therapeutic Multivitamin) 1 ea DAILY ORAL 05/07/17 09:00 06/06/17 08:59 Mupirocin 1 applic 1 applic THREE TIMES A DAY TOPIC 05/06/17 13:00 05/10/17 12:59 Olanzapine (ZyPREXA) 5 mg DAILY ORAL 05/06/17 13:00 06/05/17 12:59 Sodium Chloride (0.45% NS 1000ml) 1,000 ml @ 60 mls/hr [id number] IV 05/06/17 11:00 06/05/17 10:59 Alan Vickers M.D. May 06, 2017 14:24
[2017-05-06 15:55] VITALS: BP 123/67
--- NOTE | 2017-05-06 16:40 | General Progress Note ---
Assessment/Plan Problem List: (1) Dehydration ICD Codes: E86.0 - Dehydration SNOMED: 70421830 (2) UTI (urinary tract infection) ICD Codes: N39.0 - Urinary tract infection, site not specified SNOMED: 53064740 Qualifiers: Qualified Codes: N30.00 - Acute cystitis without hematuria (3) Seizure disorder (4) Failure to thrive in adult ICD Codes: R62.7 - Adult failure to thrive SNOMED: 466155689 (5) Diabetes ICD Codes: E11.9 - Type 2 diabetes mellitus without complications SNOMED: 31027341 Status: progressing Assessment/Plan vitals stable ftt poor appetite paranoid saying that staff are trying to poison him! spoke w dr weaver re treating the paranoia Subjective ROS Limited/Unobtainable: Yes Allergies: Coded Allergies: PENICILLINS (Verified Allergy, Unknown, 09/27/11) Objective Last 24 Hour Vital Signs Date Time Temp Pulse Resp B/P Pulse Ox O2 Delivery O2 Flow Rate FiO2 05/06/17 15:55 53 123/67 05/06/17 08:00 96.8 38 20 81/43 100 Room Air 05/05/17 21:08 172/95 05/05/17 20:00 95.9 76 20 172/95 97 Room Air Intake and Output 05/05/17 05/06/17 19:00 07:00 Intake Total 1580 ml 515 ml Output Total 900 ml 300 ml Balance 680 ml 215 ml Intake Oral 1100 ml IV Total 480 ml 515 ml Output Urine Total 900 ml 300 ml Height (Feet): 5 Height (Inches): 8.00 Weight (Pounds): 129 General Appearance: confused Neck: supple Cardiovascular: normal rate Gonzalez Romeo MD May 06, 2017 16:40
--- NOTE | 2017-05-06 17:30 | Progress Note ---
DATE: 05/06/2017 SUBJECTIVE: The patient was calm during the evaluation, however, presented with waxing and waning consciousness. This morning, he was more confused. He pulled out his intravenous access and became agitated. He was transferred to the tele unit. During the evaluation, he was a poor historian. He was not able to be engaged and answer the questions. MENTAL STATUS EXAMINATION: The patient is confused and disoriented. There is psychomotor retardation. Mood is dysphoric. Affect is flat. Congruent with mood and appropriate. Thought processes, there is a paucity of thought content. Thought content, no suicidal or homicidal ideations. ASSESSMENT AND PLAN: 1. Delirium due to general medical condition. The patient lacks capacity to make decisions. 2. We will continue to monitor his symptoms. 3. We will discontinue the Remeron. 4. We will start the patient on olanzapine 5 mg at bedtime. Abner Toribio M.D. DR: CASSIE JOB#: [id number] CC:
[2017-05-06] MEDS ORDERED: 1/2 NS 1000ml IV ONE (17:33)
[2017-05-06 20:00] VITALS: BP 131/77
[2017-05-06] MEDS ORDERED: Cefepime HCl 1 GM in D5W 55 ML IVPB SCH (21:00)
[2017-05-07] VITALS: BP 143/74
[2017-05-07 04:00] VITALS: BP 130/70
[2017-05-07] MEDS: NovoLOG Insulin Flexpen SUBQ SCH ×4 (06:30→21:00)
[2017-05-07] MEDS: Aspirin EC 325mg tab ORAL SCH (09:00)
[2017-05-07] MEDS: Multivitamin w/Minerals tab ORAL SCH (09:00)
[2017-05-07] MEDS: Lisinopril 20mg tab ORAL SCH (09:00)
[2017-05-07] MEDS: Docusate 100mg cap ORAL SCH ×2 (09:00→17:37)
[2017-05-07] MEDS ORDERED: Dyna-Hex 2% Top Sol 8oz TOPIC SCH ×2 (09:00)
[2017-05-07] MEDS: Labetalol 200mg tab ORAL SCH (09:00)
[2017-05-07] MEDS: Famotidine 20 MG/ 2ML VIAL IVP SCH (09:00)
[2017-05-07 09:23] VITALS: BP 158/68
--- NOTE | 2017-05-07 10:36 | General Progress Note ---
Assessment/Plan Problem List: (1) Dehydration ICD Codes: E86.0 - Dehydration SNOMED: 79475862 (2) UTI (urinary tract infection) ICD Codes: N39.0 - Urinary tract infection, site not specified SNOMED: 86516613 Qualifiers: Qualified Codes: N30.00 - Acute cystitis without hematuria (3) Seizure disorder (4) Failure to thrive in adult ICD Codes: R62.7 - Adult failure to thrive SNOMED: 495478008 (5) Diabetes ICD Codes: E11.9 - Type 2 diabetes mellitus without complications SNOMED: 90302397 Status: progressing Assessment/Plan vitals stable ftt poor appetite paranoid refusing iv afebrile spoke w dr weaver re treating the paranoia Subjective ROS Limited/Unobtainable: Yes Constitutional: Reports: no symptoms HEENT: Reports: no symptoms Allergies: Coded Allergies: PENICILLINS (Verified Allergy, Unknown, 09/27/11) Objective Last 24 Hour Vital Signs Date Time Temp Pulse Resp B/P Pulse Ox O2 Delivery O2 Flow Rate FiO2 05/07/17 09:23 57 18 158/68 100 Room Air 05/07/17 09:00 57 158/68 05/07/17 07:43 50 05/07/17 04:00 53 05/07/17 04:00 97.9 52 20 130/70 96 Room Air 05/07/17 00:00 97.5 49 20 143/74 96 Room Air 05/07/17 00:00 50 05/06/17 20:00 55 05/06/17 20:00 97.7 54 21 131/77 96 Room Air 05/06/17 15:55 53 123/67 05/06/17 15:48 52 Intake and Output 05/06/17 05/07/17 19:00 07:00 Intake Total 120 ml 300 ml Output Total 200 ml Balance -80 ml 300 ml Intake Oral 120 ml 300 ml Output Urine Total 200 ml # Voids 4 Height (Feet): 5 Height (Inches): 8.00 Weight (Pounds): 129 General Appearance: confused Neck: supple Cardiovascular: normal rate Respiratory/Chest: lungs clear Gonzalez Romeo MD May 07, 2017 10:36
--- NOTE | 2017-05-07 11:23 | GI Progress Note ---
Assessment/Plan Problems: (1) Severe protein-calorie malnutrition ICD Codes: E43 - Unspecified severe protein-calorie malnutrition SNOMED: 515480840 (2) Encounter for PEG (percutaneous endoscopic gastrostomy) ICD Codes: Z43.1 - Encounter for attention to gastrostomy SNOMED: 470438592, 915130511 (3) Failure to thrive in adult ICD Codes: R62.7 - Adult failure to thrive SNOMED: 862425064 (4) Dehydration ICD Codes: E86.0 - Dehydration SNOMED: 29819908 Status: unchanged Status Narrative Discussed with Dr. Lama. Assessment/Plan PEG if family agrees >> daughter wishes to hold GT placement at this time. push PO fu calorie count ADA diet fu labs Subjective Gastrointestinal/Abdominal: Reports: no symptoms Subjective limited, refusing care Objective Last 24 Hour Vital Signs Date Time Temp Pulse Resp B/P Pulse Ox O2 Delivery O2 Flow Rate FiO2 05/07/17 09:23 57 18 158/68 100 Room Air 05/07/17 09:00 57 158/68 05/07/17 07:43 50 05/07/17 04:00 53 05/07/17 04:00 97.9 52 20 130/70 96 Room Air 05/07/17 00:00 97.5 49 20 143/74 96 Room Air 05/07/17 00:00 50 05/06/17 20:00 55 05/06/17 20:00 97.7 54 21 131/77 96 Room Air 05/06/17 15:55 53 123/67 05/06/17 15:48 52 Intake and Output 05/06/17 05/07/17 19:00 07:00 Intake Total 120 ml 300 ml Output Total 200 ml Balance -80 ml 300 ml Intake Oral 120 ml 300 ml Output Urine Total 200 ml # Voids 4 Height (Feet): 5 Height (Inches): 8.00 Weight (Pounds): 129 General Appearance: no apparent distress, alert, thin Cardiovascular: normal rate Respiratory/Chest: normal breath sounds, no respiratory distress Abdominal Exam: normal bowel sounds, non tender, soft Tiffani Fuentes N.P. May 07, 2017 11:23
[2017-05-07] MEDS ORDERED: Haloperidol 5mg/ml Inj IM PRN (13:00)
--- NOTE | 2017-05-07 14:36 | Infectious Diseases Prog Note ---
Assessment/Plan Problems: (1) UTI (urinary tract infection) Assessment & Plan: with pansensitive Klebsiella pneumonia , was on ceftriaxon but puled iv line out so he was switched to levaquin orally for five more days (2) Failure to thrive in adult Assessment & Plan: dietitian was consulted , daughter refused tube feeding , was restarted on oral diet, Gi consulted for possible PEG tube placement (3) Dehydration Assessment & Plan: continue ivf , monitor lytes (4) Seizure disorder Assessment & Plan: continue seizure meds, follow up with neurology (5) Diabetes Assessment & Plan: recommend tight glycemic control to keep blood glucose between 80-120 (6) MRSA (methicillin resistant Staphylococcus aureus) colonization Assessment & Plan: on bactroban to decolonize Subjective ROS Limited/Unobtainable: Yes Allergies: Coded Allergies: PENICILLINS (Verified Allergy, Unknown, 09/27/11) Subjective he was up in bed, awake and alert, not in distress, answer questions by shaking his head , nonverbal Objective Vital Signs Last 24 Hour Vital Signs Date Time Temp Pulse Resp B/P Pulse Ox O2 Delivery O2 Flow Rate FiO2 05/07/17 11:31 55 05/07/17 09:23 57 18 158/68 100 Room Air 05/07/17 09:00 57 158/68 05/07/17 07:43 50 05/07/17 04:00 53 05/07/17 04:00 97.9 52 20 130/70 96 Room Air 05/07/17 00:00 97.5 49 20 143/74 96 Room Air 05/07/17 00:00 50 05/06/17 20:00 55 05/06/17 20:00 97.7 54 21 131/77 96 Room Air 05/06/17 15:55 53 123/67 05/06/17 15:48 52 Height (Feet): 5 Height (Inches): 8.00 Weight (Pounds): 129 General Appearance: WD/WN, no acute distress HEENT: normocephalic, atraumatic, anicteric, mucous membranes moist, supple, no JVD Respiratory/Chest: chest wall non-tender, lungs clear, normal breath sounds, no respiratory distress, no accessory muscle use Cardiovascular: normal peripheral pulses, normal rate, regular rhythm, no gallop/murmur, no JVD Abdomen: normal bowel sounds, soft, non tender, no organomegaly, non distended , no mass Extremities: no cyanosis, no clubbing Skin: no rash, no lesions Musculoskeletal: normal muscle bulk Microbiology Date/Time Source Procedure Growth Status 05/05/17 06:00 Indwelling Cath Urine Culture - Final NO GROWTH AFTER 48 HOURS Complete Current Medications Medications (Trade) Dose Ordered Sig/Verónica Route PRN Reason Start Time Stop Time Status Last Admin Dose Admin Acetaminophen (Tylenol) 650 mg Q4H PRN ORAL Mild Pain/Temp > 100.5 05/06/17 14:00 06/05/17 13:59 Al Hydroxide/Mg Hydroxide (Mylanta II) 10 ml Q6H PRN ORAL heart burn/gas 05/06/17 14:00 06/05/17 13:59 Amlodipine Besylate (Norvasc) 10 mg DAILY ORAL 05/07/17 09:00 06/06/17 08:59 Aspirin (Ecotrin) 325 mg DAILY ORAL 05/07/17 09:00 06/06/17 08:59 Atorvastatin Calcium (Lipitor) 10 mg QHS ORAL 05/06/17 21:00 06/05/17 20:59 Chlorhexidine Gluconate (Nilam-Hex 2%) 1 applic DAILY TOPIC 05/07/17 09:00 06/06/17 08:59 Clonidine HCl (Catapres) 0.1 mg Q6H PRN ORAL For High Blood Pressure 05/06/17 13:45 06/05/17 13:44 Dextrose (Dextrose 50%) STAT PRN IV Hypoglycemia 05/07/17 02:00 06/06/17 01:59 Docusate Sodium (Colace) 100 mg BID ORAL 05/06/17 18:00 06/05/17 17:59 Famotidine (Pepcid I.v.) 40 mg DAILY IVP 05/07/17 09:00 06/06/17 08:59 Haloperidol Lactate (Haldol) 5 mg Q6H PRN IM Agitation 05/07/17 13:00 06/06/17 12:59 UNV Insulin Aspart (NovoLOG) BEFORE MEALS AND HS SUBQ 05/06/17 11:30 06/05/17 11:29 Labetalol HCl (Normodyne) 200 mg DAILY ORAL 05/07/17 09:00 06/06/17 08:59 Latanoprost (Xalatan) 1 drop QHS BOTH EYES 05/06/17 21:00 06/05/17 20:59 Levetiracetam (Keppra) 500 mg Q12HR ORAL 05/06/17 21:00 06/05/17 20:59 Levofloxacin (Levaquin) 250 mg QHS ORAL 05/06/17 21:00 05/13/17 20:59 Lisinopril (Prinivil) 40 mg DAILY ORAL 05/07/17 09:00 06/06/17 08:59 Multivitamins Therapeutic (Therapeutic Multivitamin) 1 ea DAILY ORAL 05/07/17 09:00 06/06/17 08:59 Mupirocin (Bactroban Oint) 1 applic THREE TIMES A DAY TOPIC 05/06/17 13:00 05/10/17 12:59 Olanzapine (ZyPREXA) 5 mg DAILY ORAL 05/06/17 13:00 06/05/17 12:59 Sodium Chloride (0.45% NS 1000ml) 1,000 ml @ 60 mls/hr [id number] IV 05/06/17 11:00 06/05/17 10:59 Alan Vickers M.D. May 07, 2017 14:36
[2017-05-08] MEDS: NovoLOG Insulin Flexpen SUBQ SCH ×4 (06:30→21:00)
[2017-05-08] MEDS: Lisinopril 20mg tab ORAL SCH (09:00)
[2017-05-08] MEDS: Famotidine 20 MG/ 2ML VIAL IVP SCH (09:00)
[2017-05-08] MEDS: Docusate 100mg cap ORAL SCH ×2 (09:00→17:56)
[2017-05-08] MEDS: Multivitamin w/Minerals tab ORAL SCH (09:00)
[2017-05-08] MEDS: Labetalol 200mg tab ORAL SCH (09:00)
[2017-05-08] MEDS: Aspirin EC 325mg tab ORAL SCH (09:00)
[2017-05-08] MEDS ORDERED: TYLENOL325 MG ORAL (10:09)
[2017-05-08] MEDS ORDERED: MYLANTA30 M1 ORAL (10:10)
[2017-05-08] MEDS ORDERED: ASPIRIN EC325 MG ORAL (10:10)
[2017-05-08] MEDS ORDERED: ATORVASTATIN CA10 MG ORAL (10:11)
[2017-05-08] MEDS ORDERED: COLACE100 MG ORAL (10:11)
[2017-05-08] MEDS ORDERED: HALDOL5 MG/1 ML IM (10:12)
[2017-05-08] MEDS ORDERED: NOVOLOG100 UNITS1 (10:13)
[2017-05-08] MEDS ORDERED: NORMODYNE200 MG ORAL (10:13)
[2017-05-08] MEDS ORDERED: XALATAN2.5 ML BOTH EYES (10:14)
[2017-05-08] MEDS ORDERED: MULTIVITAMINS1 EAC2 ORAL (10:15)
[2017-05-08] MEDS ORDERED: LISINOPRIL20 MG ORAL (10:15)
[2017-05-08] MEDS ORDERED: LEVOFLOXACIN250 MG ORAL (10:15)
[2017-05-08] MEDS ORDERED: OLANZAPINE5 MG ORAL (10:16)
[2017-05-08] MEDS ORDERED: NORVASC10 MG ORAL (10:16)
[2017-05-08] MEDS ORDERED: CATAPRES0.1 MG ORAL (10:16)
--- NOTE | 2017-05-08 10:16 | General Progress Note ---
Assessment/Plan Problem List: (1) Dehydration ICD Codes: E86.0 - Dehydration SNOMED: 35686198 (2) UTI (urinary tract infection) ICD Codes: N39.0 - Urinary tract infection, site not specified SNOMED: 11483197 Qualifiers: Qualified Codes: N30.00 - Acute cystitis without hematuria (3) Seizure disorder (4) Failure to thrive in adult ICD Codes: R62.7 - Adult failure to thrive SNOMED: 377997708 (5) Diabetes ICD Codes: E11.9 - Type 2 diabetes mellitus without complications SNOMED: 46771486 Status: progressing Assessment/Plan dc to snf today see dc summary for details paranoid refusing iv spoke w dr weaver re treating the paranoia Subjective Constitutional: Reports: no symptoms Allergies: Coded Allergies: PENICILLINS (Verified Allergy, Unknown, 09/27/11) Objective Last 24 Hour Vital Signs Date Time Temp Pulse Resp B/P Pulse Ox O2 Delivery O2 Flow Rate FiO2 05/08/17 09:27 05/08/17 08:00 51 05/08/17 04:00 53 05/08/17 00:00 81 05/07/17 20:00 70 05/07/17 15:44 66 05/07/17 11:31 55 Intake and Output 05/07/17 05/08/17 19:00 07:00 Intake Total 960 ml 120 ml Output Total 300 ml Balance 960 ml -180 ml Intake Oral 960 ml 120 ml Output Urine Total 300 ml # Voids 3 Height (Feet): 5 Height (Inches): 8.00 Weight (Pounds): 129 General Appearance: confused Neck: supple Cardiovascular: normal rate Respiratory/Chest: lungs clear Gonzalez Romeo MD May 08, 2017 10:16
[2017-05-08] MEDS ORDERED: KEPPRA500 M4 ORAL (10:17)
--- NOTE | 2017-05-08 13:08 | GI Progress Note ---
Assessment/Plan Problems: (1) Severe protein-calorie malnutrition ICD Codes: E43 - Unspecified severe protein-calorie malnutrition SNOMED: 589983041 (2) Encounter for PEG (percutaneous endoscopic gastrostomy) ICD Codes: Z43.1 - Encounter for attention to gastrostomy SNOMED: 517292658, 445221311 (3) Failure to thrive in adult ICD Codes: R62.7 - Adult failure to thrive SNOMED: 035357596 (4) Dehydration ICD Codes: E86.0 - Dehydration SNOMED: 85116463 Status: stable, unchanged Status Narrative Discussed with Dr. Lama. Assessment/Plan PEG if family agrees >> daughter wishes to hold GT placement at this time. push PO fu calorie count ADA diet fu labs The patient was seen and examined at bedside and all new and available data was reviewed in the patients chart. I agree with the above findings, impression and plan. (Patient seen earlier today. Signature stamp does not reflect patient encounter time.). -Isidoro Lama MD Subjective Subjective limited no symptoms Objective Last 24 Hour Vital Signs Date Time Temp Pulse Resp B/P Pulse Ox O2 Delivery O2 Flow Rate FiO2 05/08/17 09:27 05/08/17 08:00 51 05/08/17 04:00 53 05/08/17 00:00 81 05/07/17 20:00 70 05/07/17 15:44 66 Intake and Output 05/07/17 05/08/17 19:00 07:00 Intake Total 960 ml 120 ml Output Total 300 ml Balance 960 ml -180 ml Intake Oral 960 ml 120 ml Output Urine Total 300 ml # Voids 3 Height (Feet): 5 Height (Inches): 8.00 Weight (Pounds): 129 General Appearance: no apparent distress, alert Cardiovascular: normal rate Respiratory/Chest: normal breath sounds, no respiratory distress Abdominal Exam: normal bowel sounds, non tender, soft Genitourinary/Rectal: normal rectal exam Tiffani Fuentes N.P. May 08, 2017 13:08 ISIDORO LAMA May 13, 2017 07:58
--- NOTE | 2017-05-08 13:23 | Infectious Diseases Prog Note ---
Assessment/Plan Problems: (1) UTI (urinary tract infection) Assessment & Plan: with pansensitive Klebsiella pneumonia , was on ceftriaxon but puled iv line out so he was switched to levaquin orally for four more days (2) Failure to thrive in adult Assessment & Plan: dietitian was consulted , daughter refused tube feeding , was restarted on oral diet, Gi consulted (3) Dehydration Assessment & Plan: continue ivf , monitor lytes (4) Seizure disorder Assessment & Plan: continue seizure meds, follow up with neurology (5) Diabetes Assessment & Plan: recommend tight glycemic control to keep blood glucose between 80-120 (6) MRSA (methicillin resistant Staphylococcus aureus) colonization Assessment & Plan: on bactroban to decolonize Subjective ROS Limited/Unobtainable: Yes Allergies: Coded Allergies: PENICILLINS (Verified Allergy, Unknown, 09/27/11) Subjective he was up in bed, awake and alert, not in distress, answer questions by shaking his head , nonverbal Objective Vital Signs Last 24 Hour Vital Signs Date Time Temp Pulse Resp B/P Pulse Ox O2 Delivery O2 Flow Rate FiO2 05/08/17 09:27 05/08/17 08:00 51 05/08/17 04:00 53 05/08/17 00:00 81 05/07/17 20:00 70 05/07/17 15:44 66 Height (Feet): 5 Height (Inches): 8.00 Weight (Pounds): 129 General Appearance: WD/WN, no acute distress HEENT: normocephalic, atraumatic, anicteric, mucous membranes moist Respiratory/Chest: chest wall non-tender, lungs clear, normal breath sounds, no respiratory distress, no accessory muscle use Cardiovascular: normal peripheral pulses, normal rate, regular rhythm, no gallop/murmur, no JVD Abdomen: normal bowel sounds, soft, non tender, no organomegaly, non distended , no mass, no scars Extremities: no cyanosis, no clubbing Skin: no rash, no lesions Current Medications Medications (Trade) Dose Ordered Sig/Verónica Route PRN Reason Start Time Stop Time Status Last Admin Dose Admin Acetaminophen (Tylenol) 650 mg Q4H PRN ORAL Mild Pain/Temp > 100.5 05/06/17 14:00 06/05/17 13:59 Al Hydroxide/Mg Hydroxide (Mylanta II) 10 ml Q6H PRN ORAL heart burn/gas 05/06/17 14:00 06/05/17 13:59 Amlodipine Besylate (Norvasc) 10 mg DAILY ORAL 05/07/17 09:00 06/06/17 08:59 Aspirin (Ecotrin) 325 mg DAILY ORAL 05/07/17 09:00 06/06/17 08:59 Atorvastatin Calcium (Lipitor) 10 mg QHS ORAL 05/06/17 21:00 06/05/17 20:59 05/07/17 20:59 Clonidine HCl (Catapres) 0.1 mg Q6H PRN ORAL For High Blood Pressure 05/06/17 13:45 06/05/17 13:44 Dextrose (Dextrose 50%) STAT PRN IV Hypoglycemia 05/07/17 02:00 06/06/17 01:59 Docusate Sodium (Colace) 100 mg BID ORAL 05/06/17 18:00 06/05/17 17:59 Famotidine (Pepcid I.v.) 40 mg DAILY IVP 05/07/17 09:00 06/06/17 08:59 Haloperidol Lactate (Haldol) 5 mg Q6H PRN IM Agitation 05/07/17 13:00 06/06/17 12:59 Insulin Aspart (NovoLOG) BEFORE MEALS AND HS SUBQ 05/06/17 11:30 06/05/17 11:29 Labetalol HCl (Normodyne) 200 mg DAILY ORAL 05/07/17 09:00 06/06/17 08:59 Latanoprost (Xalatan) 1 drop QHS BOTH EYES 05/06/17 21:00 06/05/17 20:59 05/07/17 20:59 Levetiracetam (Keppra) 500 mg Q12HR ORAL 05/06/17 21:00 06/05/17 20:59 05/07/17 20:59 Levofloxacin (Levaquin) 250 mg QHS ORAL 05/06/17 21:00 05/13/17 20:59 05/07/17 20:59 Lisinopril (Prinivil) 40 mg DAILY ORAL 05/07/17 09:00 06/06/17 08:59 Multivitamins Therapeutic (Therapeutic Multivitamin) 1 ea DAILY ORAL 05/07/17 09:00 06/06/17 08:59 Mupirocin (Bactroban Oint) 1 applic THREE TIMES A DAY TOPIC 05/06/17 13:00 05/10/17 12:59 Olanzapine (ZyPREXA) 5 mg DAILY ORAL 05/06/17 13:00 06/05/17 12:59 Sodium Chloride (0.45% NS 1000ml) 1,000 ml @ 60 mls/hr [id number] IV 05/06/17 11:00 06/05/17 10:59 Alan Vickers M.D. May 08, 2017 13:23
[2017-05-08 15:51] VITALS: BP 170/103
[2017-05-08] MEDS ORDERED: Nitroglycerin 2% oint pkt TOPIC ONE (17:00)
--- NOTE | 2017-05-08 17:31 | Progress Note ---
DATE: 05/08/2017 SUBJECTIVE: The patient's mental condition is unchanged since previous encounter. He continues to be confused and noncompliant. He is being given IM Haldol. MENTAL STATUS EXAMINATION: The patient is alert and oriented times self. He is disoriented. Mood is neutral. Affect is flat. Thought process, there is a paucity of thought content. Thought content, no suicidal or homicidal ideation. Positive for delusions. Insight and judgment are impaired. ASSESSMENT: 1. Cognitive impairment. 2. Delirium. 3. Failure to thrive. 4. Psychotic disorder. PLAN: 1. The patient will be continued on p.o. Zyprexa. 2. IM Haldol. 3. The patient lacks capacity to make decision. Abner Toribio M.D. DR: CHELSEA JOB#: [id number] CC:
[2017-05-08 17:55] VITALS: BP 168/83
[2017-05-08 20:19] VITALS: BP 151/87
--- NOTE | 2017-05-08 21:17 | Progress Note ---
DATE: 05/07/2017 SUBJECTIVE: Spoke with nurse who is at bedside. The patient is refusing all the medication including IV. The patient was not communicative, was awake, but was not answering questions. The patient is endorsing auditory hallucination as well as delusions. He is having impairment of cognition. He is unable to understand process, communicate, or understand the information that was given to him in regards to his condition. MENTAL STATUS EXAMINATION: The patient is confused and disoriented. Mood was neutral during the evaluation, however, has a tendency to be anxious. Affect is flat. The patient had a fair thought process. There is a paucity of thought content. Thought content, positive for delusions. Cognition is impaired. ASSESSMENT: 1. Delirium. 2. Psychotic disorder. PLAN: 1. The patient is going on olanzapine, however, he is refusing to take medications. The medication was given to alter his as he has ____. 2. We will start the patient on Haldol 5 mg IM every 6 hours as needed for agitation and delusions. 3. We will continue to follow and readjust the medications. 4. The patient lacks capacity to make any decision. Abner Toribio M.D. DR: CARLITA JOB#: [id number] CC:
[2017-05-09 05:45] VITALS: BP 158/84
[2017-05-09] MEDS: NovoLOG Insulin Flexpen SUBQ SCH (06:30)
[2017-05-09 07:45] VITALS: BP 163/84
[2017-05-09 09:00] VITALS: BP 132/82
[2017-05-09] MEDS: Aspirin EC 325mg tab ORAL SCH (09:00)
[2017-05-09] MEDS: Lisinopril 20mg tab ORAL SCH (09:00)
[2017-05-09] MEDS: Docusate 100mg cap ORAL SCH (09:00)
[2017-05-09] MEDS: Multivitamin w/Minerals tab ORAL SCH (09:00)
[2017-05-09] MEDS: Famotidine 20 MG/ 2ML VIAL IVP SCH (09:00)
[2017-05-09] MEDS: Labetalol 200mg tab ORAL SCH (09:12)
[2017-05-09] MEDS ORDERED: Minoxidil 2.5mg tab ORAL PRN (09:30)
[2017-05-09 09:59] LABS: BASOPHILS % (AUTO) 1.5 % (0.0-2.0); LYMPHOCYTES % (AUTO) 29.7 % (20.0-45.0); MEAN CORPUSCULAR HEMOGLOBIN 32.2 PG (27.0-31.0); MEAN CORPUSCULAR HGB CONC 33.7 G/DL (32.0-36.0); MEAN CORPUSCULAR VOLUME 96 FL (80-99); MEAN PLATELET VOLUME 9.1 FL (6.5-10.1); MONOCYTES % (AUTO) 7.8 % (1.0-10.0); PLATELET COUNT 274 K/UL (150-450); RED BLOOD COUNT 4.22 M/UL (4.70-6.10); RED CELL DISTRIBUTION WIDTH 10.4 % (11.6-14.8); WHITE BLOOD COUNT 8.3 K/UL (4.8-10.8)
[2017-05-09 10:16] LABS: ALANINE AMINOTRANSFERASE 10 U/L (3-41); ALBUMIN/GLOBULIN RATIO 1.5 (1.0-2.7); ANION GAP 12 (5-15); ASPARTATE AMINO TRANSFERASE 16 U/L (5-40); CARBON DIOXIDE 24 mEQ/L (20-30); CHLORIDE 105 mEQ/L (98-107); CREATININE 0.7 mg/dL (0.7-1.2); GLOMERULAR FILTRATION RATE > 60 mL/min (>60); HEMOLYSIS 1; MAGNESIUM 1.9 mg/dL (1.7-2.5); PHOSPHORUS 3.1 mg/dL (2.5-4.8); SODIUM 141 mEQ/L (135-145); TOTAL PROTEIN 6.5 g/dL (6.6-8.7); URIC ACID 5.1 mg/dL (3.0-7.5)
--- NOTE | 2017-05-09 10:34 | Consultation ---
Consult Note Consult Note asked to eval for HTN Patient Psych Ds and refuses po meds periodically Examined- Data reviewed Discussed with foreclosure specialist/Plan Status: HTN OOC- started on TTS iii will observe (1) UTI (urinary tract infection) (2) Failure to thrive in adult (3) Dehydration- resolved (4) Seizure disorder (5) Diabetes- no evidence (6) MRSA (methicillin resistant Staphylococcus aureus) colonization Plan; DC IV Adjust BP meds Per orders MALCOLM FOX May 09, 2017 10:34
--- NOTE | 2017-05-09 11:31 | General Progress Note ---
Assessment/Plan Assessment/Plan (1) Severe protein-calorie malnutrition ICD Codes: E43 - Unspecified severe protein-calorie malnutrition SNOMED: 362217772 (2) Encounter for PEG (percutaneous endoscopic gastrostomy) ICD Codes: Z43.1 - Encounter for attention to gastrostomy SNOMED: 304978581, 151406311 (3) Failure to thrive in adult ICD Codes: R62.7 - Adult failure to thrive SNOMED: 890666045 (4) Dehydration ICD Codes: E86.0 - Dehydration SNOMED: 82340511 Status: stable, unchanged Assessment/Plan PEG if family agrees >> daughter wishes to hold GT placement at this time. push PO fu calorie count ADA diet fu labs Subjective Allergies: Coded Allergies: PENICILLINS (Verified Allergy, Unknown, 09/27/11) Subjective feels OK no abdominal pain poor appetite Objective Last 24 Hour Vital Signs Date Time Temp Pulse Resp B/P Pulse Ox O2 Delivery O2 Flow Rate FiO2 05/09/17 10:40 153/97 05/09/17 09:12 65 163/84 05/09/17 09:11 65 163/84 05/09/17 09:00 98.2 85 18 132/82 100 Room Air 05/09/17 08:00 69 05/09/17 07:45 97.0 57 18 163/84 100 Room Air 05/09/17 05:45 97.2 55 20 158/84 99 Room Air 05/09/17 04:00 61 05/09/17 00:00 55 05/08/17 20:19 97.7 67 20 151/87 99 Room Air 05/08/17 20:00 69 05/08/17 17:55 70 168/83 05/08/17 16:52 170/103 05/08/17 15:51 97.5 82 19 170/103 99 Room Air 05/08/17 12:00 56 Intake and Output 05/08/17 05/09/17 19:00 07:00 Intake Total 230 ml 240 ml Output Total 500 ml Balance 230 ml -260 ml Intake Oral 230 ml 240 ml Output Urine Total 500 ml # Voids 2 # Bowel Movements 1 2 Laboratory Tests 05/09/17 09:35: White Blood Count 8.3, Red Blood Count 4.22L, Hemoglobin 13.6L, Hematocrit 40.4L , Mean Corpuscular Volume 96, Mean Corpuscular Hemoglobin 32.2H, Mean Corpuscular Hemoglobin Concent 33.7, Red Cell Distribution Width 10.4L, Platelet Count 274, Mean Platelet Volume 9.1, Neutrophils (%) (Auto) 59.0, Lymphocytes (%) (Auto) 29.7, Monocytes (%) (Auto) 7.8, Eosinophils (%) (Auto) 2.0, Basophils (%) (Auto) 1.5, Sodium Level 141, Potassium Level 4.0, Chloride Level 105, Carbon Dioxide Level 24, Anion Gap 12, Blood Urea Nitrogen 15, Creatinine 0.7, Estimat Glomerular Filtration Rate > 60, Glucose Level 101, Uric Acid 5.1, Calcium Level 9.0, Phosphorus Level 3.1, Magnesium Level 1.9, Total Bilirubin 0.6, Aspartate Amino Transf (AST/SGOT) 16, Alanine Aminotransferase (ALT/SGPT) 10, Alkaline Phosphatase 61, Pro-B-Type Natriuretic Peptide 2932H, Total Protein 6.5L, Albumin 3.9, Globulin 2.6, Albumin/Globulin Ratio 1.5 Height (Feet): 5 Height (Inches): 8.00 Weight (Pounds): 129 Objective Thin AA man NCAT supple CTA RRR soft ND NT no edema nonfocal ARACELI OJEDA May 09, 2017 11:31
[2017-05-09 11:39] VITALS: BP 153/97
--- NOTE | 2017-05-09 14:09 | Infectious Diseases Prog Note ---
Assessment/Plan Problems: (1) UTI (urinary tract infection) Assessment & Plan: with pansensitive Klebsiella pneumonia , on levaquin orally for three more days (2) Failure to thrive in adult Assessment & Plan: dietitian was consulted , daughter refused tube feeding , was restarted on oral diet. (3) Dehydration Assessment & Plan: continue ivf , monitor lytes (4) Seizure disorder Assessment & Plan: continue seizure meds, follow up with neurology (5) Diabetes Assessment & Plan: recommend tight glycemic control to keep blood glucose between 80-120 (6) MRSA (methicillin resistant Staphylococcus aureus) colonization Assessment & Plan: on bactroban to decolonize Subjective ROS Limited/Unobtainable: Yes Allergies: Coded Allergies: PENICILLINS (Verified Allergy, Unknown, 09/27/11) Subjective he was up in bed, alert, not in distress, nonverbal, afebrile Objective Vital Signs Last 24 Hour Vital Signs Date Time Temp Pulse Resp B/P Pulse Ox O2 Delivery O2 Flow Rate FiO2 05/09/17 12:00 62 05/09/17 11:39 97.0 62 20 153/97 99 Room Air 05/09/17 10:40 153/97 05/09/17 09:12 65 163/84 05/09/17 09:11 65 163/84 05/09/17 09:00 98.2 85 18 132/82 100 Room Air 05/09/17 08:00 69 05/09/17 07:45 97.0 57 18 163/84 100 Room Air 05/09/17 05:45 97.2 55 20 158/84 99 Room Air 05/09/17 04:00 61 05/09/17 00:00 55 05/08/17 20:19 97.7 67 20 151/87 99 Room Air 05/08/17 20:00 69 05/08/17 17:55 70 168/83 05/08/17 16:52 170/103 05/08/17 15:51 97.5 82 19 170/103 99 Room Air Height (Feet): 5 Height (Inches): 8.00 Weight (Pounds): 129 General Appearance: WD/WN, no acute distress HEENT: normocephalic, atraumatic, anicteric, mucous membranes moist, no JVD Respiratory/Chest: chest wall non-tender, lungs clear, normal breath sounds, no respiratory distress, no accessory muscle use Cardiovascular: normal peripheral pulses, normal rate, regular rhythm, no gallop/murmur, no JVD Abdomen: normal bowel sounds, soft, non tender, no organomegaly, non distended , no mass, no scars Extremities: no cyanosis, no clubbing Skin: no rash, no lesions Musculoskeletal: normal muscle bulk Laboratory Tests Test 05/09/17 09:35 White Blood Count 8.3 K/UL (4.8-10.8) Red Blood Count 4.22 M/UL (4.70-6.10) L Hemoglobin 13.6 G/DL (14.2-18.0) L Hematocrit 40.4 % (42.0-52.0) L Mean Corpuscular Volume 96 FL (80-99) Mean Corpuscular Hemoglobin 32.2 PG (27.0-31.0) H Mean Corpuscular Hemoglobin Concent 33.7 G/DL (32.0-36.0) Red Cell Distribution Width 10.4 % (11.6-14.8) L Platelet Count 274 K/UL (150-450) Mean Platelet Volume 9.1 FL (6.5-10.1) Neutrophils (%) (Auto) 59.0 % (45.0-75.0) Lymphocytes (%) (Auto) 29.7 % (20.0-45.0) Monocytes (%) (Auto) 7.8 % (1.0-10.0) Eosinophils (%) (Auto) 2.0 % (0.0-3.0) Basophils (%) (Auto) 1.5 % (0.0-2.0) Sodium Level 141 mEQ/L (135-145) Potassium Level 4.0 mEQ/L (3.4-4.9) Chloride Level 105 mEQ/L (98-107) Carbon Dioxide Level 24 mEQ/L (20-30) Anion Gap 12 (5-15) Blood Urea Nitrogen 15 mg/dL (7-23) Creatinine 0.7 mg/dL (0.7-1.2) Estimat Glomerular Filtration Rate > 60 mL/min (>60) Glucose Level 101 mg/dL (74-106) Uric Acid 5.1 mg/dL (3.0-7.5) Calcium Level 9.0 mg/dL (8.6-10.2) Phosphorus Level 3.1 mg/dL (2.5-4.8) Magnesium Level 1.9 mg/dL (1.7-2.5) Total Bilirubin 0.6 mg/dL (0.0-1.2) Aspartate Amino Transf (AST/SGOT) 16 U/L (5-40) Alanine Aminotransferase (ALT/SGPT) 10 U/L (3-41) Alkaline Phosphatase 61 U/L (40-129) Pro-B-Type Natriuretic Peptide 2932 pg/mL (0-125) H Total Protein 6.5 g/dL (6.6-8.7) L Albumin 3.9 g/dL (3.5-5.2) Globulin 2.6 g/dL Albumin/Globulin Ratio 1.5 (1.0-2.7) Current Medications Medications (Trade) Dose Ordered Sig/Verónica Route PRN Reason Start Time Stop Time Status Last Admin Dose Admin Acetaminophen (Tylenol) 650 mg Q4H PRN ORAL Mild Pain/Temp > 100.5 05/06/17 14:00 06/05/17 13:59 Amlodipine Besylate (Norvasc) 10 mg DAILY ORAL 05/07/17 09:00 06/06/17 08:59 05/09/17 09:11 Aspirin (Ecotrin) 325 mg DAILY ORAL 05/07/17 09:00 06/06/17 08:59 Atorvastatin Calcium (Lipitor) 10 mg QHS ORAL 05/06/17 21:00 06/05/17 20:59 05/07/17 20:59 Clonidine HCl (Catapres TTS-3) 1 patch QWEEK TDERMAL 05/09/17 11:00 06/08/17 10:59 05/09/17 10:40 Dextrose (Dextrose 50%) STAT PRN IV Hypoglycemia 05/07/17 02:00 06/06/17 01:59 Docusate Sodium (Colace) 100 mg BID ORAL 05/06/17 18:00 06/05/17 17:59 Haloperidol Lactate (Haldol) 5 mg Q6H PRN IM Agitation 05/07/17 13:00 06/06/17 12:59 05/08/17 14:11 Latanoprost (Xalatan) 1 drop QHS BOTH EYES 05/06/17 21:00 06/05/17 20:59 05/07/17 20:59 Levetiracetam (Keppra) 500 mg Q12HR ORAL 05/06/17 21:00 06/05/17 20:59 05/07/17 20:59 Levofloxacin (Levaquin) 250 mg QHS ORAL 05/06/17 21:00 05/13/17 20:59 05/07/17 20:59 Lisinopril (Prinivil) 40 mg DAILY ORAL 05/07/17 09:00 06/06/17 08:59 Minoxidil (Loniten) 2.5 mg Q4H PRN ORAL bp over 165 syst 05/09/17 09:30 06/08/17 09:29 Multivitamins Therapeutic (Therapeutic Multivitamin) 1 ea DAILY ORAL 05/07/17 09:00 06/06/17 08:59 Mupirocin (Bactroban Oint) 1 applic THREE TIMES A DAY TOPIC 05/06/17 13:00 05/10/17 12:59 Olanzapine (ZyPREXA) 5 mg DAILY ORAL 05/06/17 13:00 06/05/17 12:59 Alan Vickers M.D. May 09, 2017 14:09
--- NOTE | 2017-05-13 08:15 | Discharge Summary ---
Discharge Summary Hospital Course Date of Admission May 03, 2017 at 21:01 Date of Discharge May 09, 2017 at 15:20 Admitting Diagnosis failure to trive HPI Prashanth Corado is a 71 year old male who was admitted on May 03, 2017 at 21: 01 for Failure To Thrive Hospital Course dc summary #[id number] Discharge Medications Continued Medications: Acetaminophen (Tylenol) 325 Mg Tablet 650 MG ORAL Q4HR PRN for Prn Pain/Headache/Temp > 101, #30 TAB 0 Refills Al Hydroxide/mg Hydroxide (Mag-Al Liquid) 30 Ml Oral.susp 10 ML ORAL EVERY 6 HOURS PRN for dyspepsia, ML Amlodipine Besylate (Norvasc) 10 Mg Tablet 10 MG ORAL DAILY, TAB Aspirin* (Aspirin Ec*) 325 Mg Tablet. 325 MG ORAL DAILY, TAB Atorvastatin Calcium* (Lipitor*) 10 Mg Tablet 10 MG ORAL BEDTIME, TAB Clonidine Hcl* (Catapres*) 0.1 Mg Tablet 0.1 MG ORAL EVERY 6 HOURS PRN for For High Blood Pressure, TAB Docusate Sodium* (Colace*) 100 Mg Capsule 100 MG ORAL TWICE A DAY, CAP Haloperidol Lactate (Haldol) 5 Mg/1 Ml Ampul 5 MG IM EVERY 6 HOURS PRN for For Anxiety, AMP Insulin Aspart (Novolog Flexpen) 100 Unit/1 Ml Insuln.pen ACHS Labetalol HCl (Labetalol HCl) 200 Mg Tablet 200 MG ORAL DAILY, TAB Latanoprost* (Xalatan*) 2.5 Ml Drops 1 DROP BOTH EYES BEDTIME, #2.5 ML 0 Refills Levetiracetam (Keppra) 500 Mg Tablet 500 MG ORAL EVERY 12 HOURS, #60 TAB 0 Refills Levofloxacin (Levofloxacin*) 250 Mg Tablet 250 MG ORAL BEDTIME for 4 Days, TAB Lisinopril (Lisinopril*) 20 Mg Tablet 40 MG ORAL DAILY, TAB Multivitamins* (Multivitamins*) 1 Each Tablet 1 TAB ORAL DAILY, TAB 0 Refills Olanzapine (Olanzapine) 5 Mg Tablet 5 MG ORAL DAILY, TAB Discontinued Medications: Acetaminophen* (Acetaminophen 325MG Tablet*) 325 Mg Tablet 650 MG ORAL Q4H PRN for For Pain, TAB Amlodipine Besylate (Norvasc) 10 Mg Tab 10 MG PO DAILY, #10 TAB Aspirin* (Aspirin Ec*) 325 Mg Tablet. 325 MG ORAL DAILY, TAB Atorvastatin Calcium* (Lipitor*) 10 Mg Tablet 10 MG PO QHS Docusate Sodium* (Colace*) 100 Mg Capsule 100 MG PO BID, #30 CAP Famotidine (Pepcid) 40 Mg Tablet 40 MG PO DAILY, #7 TAB 0 Refills Insulin Aspart* (Novolog*) 100 Unit/1 Ml Insuln.pen 0 SUBQ ACHS, #1 EA 0 Refills Labetalol Hcl* (Normodyne*) 200 Mg Tablet 200 MG ORAL DAILY, TAB Latanoprost* (Xalatan*) 2.5 Ml Drops 1 DROP BOTH EYES QHS, ML Instill one drop in each time daily at bedtime Levetiracetam (Keppra) 500 Mg Tab 500 MG PO Q12H, #20 TAB Lisinopril* (Lisinopril*) 40 Mg Tablet 40 MG ORAL DAILY, TAB Mag Hydrox/Al Hydrox/Simeth* (Advanced Antacid Liquid*) 355 Ml Oral.susp 10 ML ORAL, ML TAKE 10ML PO Q6HRS NEEDED FOR GAS/HEARTBURN Multivitamin With Minerals (Multivitamins With Minerals*) 1 Each Tablet 1 EACH PO DAILY, TAB Discharge Condition Upon Discharge: stable Discharge Disposition Patient was discharged to SNF/Subacute Facility(03) Discharge Diagnoses: Discharge Instructions Discharge Instructions Special Instructions I have been assigned to complete a D/C Summary on this account. I was not involved in the patient management Marily Tejada NP (Vanchtein) May 13, 2017 08:14
--- NOTE | 2017-05-13 10:15 | Discharge Summary 2 SIG ---
DATE OF ADMISSION: 05/03/2017 DATE OF DISCHARGE: 05/09/2017 REASON FOR ADMISSION: This is a 71-year-old male, resident of [facility] with past medical history significant for diabetes, hypertension, history of cerebrovascular accident with right-sided weakness, seizure disorder, and dementia, who was sent to the emergency room from the [facility] for generalized weakness. The patient did not eat or drink for about a week, refuse his medication. Workup in the emergency room revealed no fever and no leukocytosis. Urinalysis consistent with UTI. Elevated BUN consistent with dehydration. The patient admitted for further management. ADMITTING DIAGNOSES: 1. Failure to thrive. 2. Dehydration. 3. Urinary tract infection. 4. Hypertension. 5. Diabetes. 6. Seizure disorder. HOSPITAL STAY: The patient admitted. The patient started on IV fluids. The patient started on empiric antibiotics. ID followed. Urine culture was positive for Klebsiella. Antibiotic regimen was optimized. Psychiatric consult was requested. Psychiatrist diagnosed the patient with delirium, secondary to general medical condition/urinary tract infection and the patient with lack of capacity to make decision. Remeron was stopped. The patient started on Zyprexa. Renal parameters and electrolytes were closely monitored. BUN down to normal with IV hydration. IV fluids stopped. GI followed the patient as well since the patient had a severe protein-calorie malnutrition. GI consult was requested for PEG placement. GI specialist discussed with the patient's daughter, who at that time decided to hold G-tube placement. p.o. fluids were pushed. The patient was followed up with calorie count. Protein supplements implemented. Blood sugar was managed with sliding scale of insulin. Seizure precautions were maintained. Keppra continued. No seizure activities while in the hospital. Nephrology consult was requested due to blood pressure out of control. The patient started on clonidine patch along with calcium channel ana paula, beta-ana paula, JACQUELINE inhibitor, and minoxidil was given as needed. Blood pressure stabilized prior to discharge. DISCHARGE DIAGNOSES: Include, 1. Dehydration. 2. Urinary tract infection with Klebsiella. 3. Hypertensive urgency. 4. Delirium, secondary to general medical condition. 5. Severe protein-calorie malnutrition. 6. Seizure disorder. 7. Diabetes mellitus. DISCHARGE MEDICATIONS: See medication reconciliation list. DISCHARGE INSTRUCTIONS: The patient discharged to [facility]. Follow up with medical doctor at the facility. Of note, aspirin and statin were continued. DVT prophylaxis provided. Bowel regimen instituted. Gonzalez Romeo M.D. I have been assigned to dictate discharge summary on this account and I was not involved in the patient's management. Marily Tejada (vanchtein) NVanessaPVanessa DR: MARGUERITE JOB#: [id number] CC:
== END 2017-05-09 15:20 | DRG 689 ==
LOC: EDBD 19:40 → EDBEDREQ 20:03 → EMR 20:09 → EDBEDREQ 20:43 → 4E 21:01 → EDBEDREQ 21:05 → 2E 05-06 11:10
DX: N39.0 Urinary tract infection, site not specified (principal); E43 Unspecified severe protein-calorie malnutrition; F05 Delirium due to known physiological condition; R62.7 Adult failure to thrive; R13.10 Dysphagia, unspecified; Z68.1 Body mass index [BMI] 19.9 or less, adult; F20.0 Paranoid schizophrenia; E11.9 Type 2 diabetes mellitus without complications; B96.1 Klebsiella pneumoniae [K. pneumoniae] as the cause of diseases classified elsewhere; I16.0 Hypertensive urgency; E86.0 Dehydration; G40.909 Epilepsy, unspecified, not intractable, without status epilepticus; E78.5 Hyperlipidemia, unspecified; Z86.73 Personal history of transient ischemic attack (TIA), and cerebral infarction without residual deficits; K21.9 Gastro-esophageal reflux disease without esophagitis; H40.9 Unspecified glaucoma; Z88.0 Allergy status to penicillin; Z79.4 Long term (current) use of insulin; I25.10 Atherosclerotic heart disease of native coronary artery without angina pectoris; Z22.322 Carrier or suspected carrier of Methicillin resistant Staphylococcus aureus; F32.9 Major depressive disorder, single episode, unspecified; Z91.19 Patient's noncompliance with other medical treatment and regimen; F29 Unspecified psychosis not due to a substance or known physiological condition
CPT/HCPCS: 36415; 71010; 80053; 80299; 81003; 82962; 83690; 83735; 83880; 84100; 84550; 85025; 87081; 87086; 87181; J1815